=== PATIENT | male | born 1965 | race African-American/Black ===

== ENCOUNTER → 2021-12-11 | Emergency (ER) | payer OTHER ==
[2021-12-11 20:48] LABS: BASO % 0.6 % (0-2.0); EOS % 0.7 % (0-4.5); HEMATOCRIT 26.2 % (35.4-49); HEMOGLOBIN 8.8 GM/dL (11.7-16.9); LYMPH % 8.1 % (8-40); MCH 30.4 pg (25.7-33.7); MCHC 33.6 g/dl (32.0-35.9); MEAN CELL VOLUME 90.4 fl (80-96); MEAN PLT VOLUME 8.3 fl (7.5-11.1); MONO % 5.2 % (3.8-10.2); NEUT % 85.4 % (42.8-82.8); PLATELET COUNT 358 10^3/uL (134-434); RDW 15.3 % (11.9-15.9); WHITE BLOOD COUNT 15.1 K/mm3 (4.0-10.0)
[2021-12-11 21:04] LABS: BLOOD UREA NITROGEN 95.5 mg/dL (7-18); CALCIUM 10.4 mg/dL (8.5-10.1)
[2021-12-11 21:06] LABS: CREATININE 6.3 mg/dL (0.55-1.3)
[2021-12-11 21:17] VITALS: BP 107/62; PULSE 101; BMI 33.9
== END | disposition short-term general hospital (02) ==
LOC: JER 19:16
DX: J95.01 Hemorrhage from tracheostomy stoma (principal)
CPT/HCPCS: 36415; 80048; 85025; 99283-25

== ENCOUNTER 2021-12-21 17:32 | Inpatient (IN) | payer OTHER ==
[2021-12-21] MEDS ORDERED: VANCOMYCIN/WATER 2 GM/400 ML PREMIX BAG IVPB ONE (19:07)
[2021-12-21] MEDS ORDERED: ACETAMINOPHEN 1000 MG/100 ML BAG IVPB ONE (19:07)
[2021-12-21] MEDS ORDERED: PIPERACILLIN/TAZOB 2.25 GM 2.25 GM in DEXTROSE 5%-WATER - 50 ML IVPB ONE (19:08)
[2021-12-21] MEDS ORDERED: SODIUM CHLORIDE 500 ML IV STA ×2 (19:09→21:01)
[2021-12-21] MEDS ORDERED: PIPERACILLIN/TAZOB 2.25 GM 2.25 GM/50 ML BAG IVPB ONE (19:15)
[2021-12-21 20:11] LABS: BASO % 0.3 % (0-2.0); EOS % 0.7 % (0-4.5); HEMATOCRIT 20.6 % (35.4-49); LYMPH % 8.9 % (8-40); MCH 30.7 pg (25.7-33.7); MCHC 32.8 g/dl (32.0-35.9); MEAN CELL VOLUME 93.7 fl (80-96); MEAN PLT VOLUME 8.4 fl (7.5-11.1); MONO % 6.1 % (3.8-10.2); PLATELET COUNT 362 10^3/uL (134-434); RDW 16.6 % (11.9-15.9); WHITE BLOOD COUNT 17.6 K/mm3 (4.0-10.0)
[2021-12-21 20:13] LABS: VENOUS BASE EXCESS 2.4 mmol/L (-2-2); VENOUS O2 SATURATION 59.3 % (70-80); VENOUS PCO2 41.6 mmHg (38-52); VENOUS PH 7.429 (7.310-7.410)
[2021-12-21 20:17] LABS: INR 1.29 (0.83-1.09); PROTHROMBIN TIME (PATIENT) 14.9 SEC (9.7-13.0)
[2021-12-21 20:18] LABS: HEMOGLOBIN 6.7 GM/dL (11.7-16.9)
[2021-12-21 20:19] LABS: ACTIVATED PTT 35.4 SECONDS (25.2-36.5)
[2021-12-21 20:33] LABS: CALCIUM 10.4 mg/dL (8.5-10.1)
[2021-12-21 20:37] LABS: BLOOD UREA NITROGEN 21.8 mg/dL (7-18); CREATININE 3.3 mg/dL (0.55-1.3)
[2021-12-21 20:39] LABS: BILIRUBIN,TOTAL 0.7 mg/dL (0.2-1); TOT PROT 6.2 g/dl (6.4-8.2)
[2021-12-21] MEDS ORDERED: POTASSIUM CHLORIDE TABS 20 MEQ TABLET.ER (FP) PO ONE (21:53)
[2021-12-21] MEDS ORDERED: POTASSIUM CHLORIDE ORAL LIQUID 20 MEQ/15 ML ONE (22:15)
[2021-12-22 00:35] LABS: BASO % 0.4 % (0-2.0); EOS % 0.7 % (0-4.5); HEMATOCRIT 20.7 % (35.4-49); LYMPH % 9.5 % (8-40); MCH 30.6 pg (25.7-33.7); MCHC 32.5 g/dl (32.0-35.9); MEAN CELL VOLUME 94.3 fl (80-96); MEAN PLT VOLUME 7.8 fl (7.5-11.1); MONO % 7.6 % (3.8-10.2); NEUT % 81.8 % (42.8-82.8); PLATELET COUNT 301 10^3/uL (134-434); RDW 16.7 % (11.9-15.9); WHITE BLOOD COUNT 15.4 K/mm3 (4.0-10.0)
[2021-12-22 00:39] LABS: HEMOGLOBIN 6.7 GM/dL (11.7-16.9)
[2021-12-22] MEDS ORDERED: VANCOMYCIN HCL 1,500 MG in DEXTROSE 5%-WATER - 250 ML IVPB SCH (02:45)
[2021-12-22] MEDS ORDERED: HEPARIN NA (PORCINE) 5,000 UNITS/ML 1ML VIAL ONE ×2 (06:46→14:01)
[2021-12-22] MEDS ORDERED: PIPERACILLIN/TAZOB 2.25 GM 2.25 GM/50 ML BAG IVPB ONE ×2 (06:46→08:11)
[2021-12-22] MEDS: PIPERACILLIN/TAZOB 2.25 GM 2.25 GM in DEXTROSE 5%-WATER - 50 ML IVPB SCH ×3 (07:01→17:40)
[2021-12-22] MEDS: HEPARIN NA (PORCINE) 5,000 UNITS/ML 1ML VIAL SQ SCH ×3 (07:01→22:29)
[2021-12-22] MEDS ORDERED: ACETAMINOPHEN 1000 MG/100 ML BAG IVPB ONE (07:39)
[2021-12-22] MEDS ORDERED: ACETAMINOPHEN INJECTION 100 ML IVPB ONE (07:41)
[2021-12-22] MEDS: INSULIN SLIDING SCALE (NOVOLOG) 1 VIAL SQ SCH ×4 (07:44→22:54)
[2021-12-22 07:50] LABS: HEMOGLOBIN 7.5 GM/dL (11.7-16.9); MCH 31.1 pg (25.7-33.7); MCHC 32.7 g/dl (32.0-35.9); MEAN CELL VOLUME 95.2 fl (80-96); MEAN PLT VOLUME 8.1 fl (7.5-11.1); PLATELET COUNT 400 10^3/uL (134-434); RBC 2.42 M/mm3 (4.00-5.60); RDW 16.3 % (11.9-15.9); RETICULOCYTES 3.29 % (0.5-1.5); WHITE BLOOD COUNT 20.3 K/mm3 (4.0-10.0)
[2021-12-22] MEDS ORDERED: ALBUTEROL SO4 0.083% IH SOL 2.5 MG/3 ML VIAL.NEB. NEB SCH (08:00)
[2021-12-22 08:11] LABS: CALCIUM 11.4 mg/dL (8.5-10.1)
[2021-12-22 08:12] LABS: ALBUMIN 2.2 g/dl (3.4-5.0); BLOOD UREA NITROGEN 27.5 mg/dL (7-18); MAGNESIUM 2.7 mg/dL (1.8-2.4)
[2021-12-22 08:14] LABS: PHOSPHOROUS 3.5 mg/dL (2.5-4.9)
[2021-12-22 08:15] LABS: CREATININE 3.9 mg/dL (0.55-1.3)
[2021-12-22 08:16] LABS: BILIRUBIN,TOTAL 0.3 mg/dL (0.2-1); TOT PROT 7.2 g/dl (6.4-8.2)
[2021-12-22] MEDS ORDERED: FAMOTIDINE 20 MG TABLET ONE (08:27)
[2021-12-22] MEDS ORDERED: ASPIRIN 81 MG CHEWABLE TABLETS ONE (08:27)
[2021-12-22] MEDS ORDERED: ALBUTEROL SO4 0.083% IH SOL 2.5 MG/3 ML VIAL.NEB. NEB ONE (08:41)
[2021-12-22] MEDS: CARVEDILOL 12.5 MG TABLET (FP) GT SCH ×2 (09:00→22:47)
[2021-12-22] MEDS: FAMOTIDINE 40 MG/5 ML ORAL SUSPENSION GT SCH ×2 (09:00→22:30)
[2021-12-22 09:18] LABS: ANISOCYTOSIS 1+; MACROCYTOSIS 1+
[2021-12-22] MEDS ORDERED: FINASTERIDE 5 MG TABLET (FP) PO SCH (10:00)
[2021-12-22] MEDS ORDERED: ASPIRIN 81 MG CHEWABLE TABLETS GT SCH (10:00)
[2021-12-22] MEDS ORDERED: VITAMIN B COMP W-C 1 EA TABLET (NEPHRO-VITE) PO SCH (10:00)
[2021-12-22] MEDS ORDERED: PIPERACILLIN/TAZOBACTAM 2.25 GM VIAL IVPB ONE (17:24)
[2021-12-22] MEDS ORDERED: DEXTROSE 5%-WATER - 50 ML IVPB ONE (17:25)
[2021-12-22 19:17] LABS: BASO % 0.4 % (0-2.0); HEMATOCRIT 22.8 % (35.4-49); HEMOGLOBIN 7.6 GM/dL (11.7-16.9); LYMPH % 11.2 % (8-40); MCH 30.9 pg (25.7-33.7); MCHC 33.5 g/dl (32.0-35.9); MEAN CELL VOLUME 92.3 fl (80-96); MEAN PLT VOLUME 7.8 fl (7.5-11.1); MONO % 5.9 % (3.8-10.2); NEUT % 80.5 % (42.8-82.8); PLATELET COUNT 309 10^3/uL (134-434); RBC 2.47 M/mm3 (4.00-5.60); RDW 15.7 % (11.9-15.9); WHITE BLOOD COUNT 15.2 K/mm3 (4.0-10.0)
[2021-12-22] MEDS: ATORVASTATIN CA 40 MG TABLET (FP) GT SCH (22:30)
[2021-12-23] MEDS ORDERED: DEXTROSE 5%-WATER - 50 ML IVPB ONE ×3 (01:10→16:27)
[2021-12-23] MEDS ORDERED: PIPERACILLIN/TAZOBACTAM 2.25 GM VIAL IVPB ONE ×3 (01:10→16:27)
[2021-12-23] MEDS: PIPERACILLIN/TAZOB 2.25 GM 2.25 GM in DEXTROSE 5%-WATER - 50 ML IVPB SCH ×3 (01:20→17:07)
[2021-12-23] MEDS ORDERED: PIPERACILLIN/TAZOB 2.25 GM 2.25 GM in DEXTROSE 5%-WATER - 50 ML IVPB SCH (03:00)
[2021-12-23] MEDS: HEPARIN NA (PORCINE) 5,000 UNITS/ML 1ML VIAL SQ SCH (05:10)
[2021-12-23] MEDS ORDERED: ACETAMINOPHEN 1000 MG/100 ML BAG IVPB ONE (05:41)
[2021-12-23] MEDS: LEVALBUTEROL HCL 0.63 MG/3 ML VIAL.NEB. IH PRN ×4 (06:06→20:39)
[2021-12-23] MEDS: INSULIN SLIDING SCALE (NOVOLOG) 1 VIAL SQ SCH ×4 (06:38→22:01)
[2021-12-23 07:15] LABS: BASO % 0.5 % (0-2.0); EOS % 1.4 % (0-4.5); HEMATOCRIT 25.3 % (35.4-49); HEMOGLOBIN 8.2 GM/dL (11.7-16.9); LYMPH % 6.9 % (8-40); MCH 30.3 pg (25.7-33.7); MCHC 32.6 g/dl (32.0-35.9); MEAN PLT VOLUME 8.3 fl (7.5-11.1); NEUT % 86.2 % (42.8-82.8); PLATELET COUNT 370 10^3/uL (134-434); RBC 2.72 M/mm3 (4.00-5.60); RDW 16.4 % (11.9-15.9)
[2021-12-23 07:37] LABS: ALBUMIN 1.9 g/dl (3.4-5.0); BLOOD UREA NITROGEN 34.3 mg/dL (7-18); CALCIUM 11.1 mg/dL (8.5-10.1); MAGNESIUM 2.5 mg/dL (1.8-2.4)
[2021-12-23] MEDS ORDERED: SODIUM CHLORIDE 250 ML IV PRN (07:39)
[2021-12-23 07:40] LABS: PHOSPHOROUS 4.8 mg/dL (2.5-4.9)
[2021-12-23 07:42] LABS: BILIRUBIN,TOTAL 0.4 mg/dL (0.2-1); TOT PROT 6.3 g/dl (6.4-8.2)
[2021-12-23 08:34] LABS: ANISOCYTOSIS 1+; MACROCYTOSIS 0
[2021-12-23 08:54] LABS: N-TERMINAL BNP 2889.1 pg/ml (5-125)
[2021-12-23] MEDS ORDERED: EPOETIN ALFA-EPBX 10,000 UNIT/ML VIAL SQ ONE (09:00)
[2021-12-23] MEDS ORDERED: FINASTERIDE 5 MG TABLET (FP) NR SCH ×2 (10:00→11:00)
[2021-12-23] MEDS ORDERED: PANTOPRAZOLE SODIUM 40 MG VIAL IVPUSH SCH (10:00)
[2021-12-23] MEDS ORDERED: LEVALBUTEROL HCL 0.63 MG/3 ML VIAL.NEB. IH ONE (10:30)
[2021-12-23] MEDS: VITAMIN B COMP W-C 1 EA TABLET (NEPHRO-VITE) PO SCH (11:11)
[2021-12-23] MEDS: CARVEDILOL 12.5 MG TABLET (FP) GT SCH ×2 (11:11→21:36)
[2021-12-23] MEDS ORDERED: CARVEDILOL 12.5 MG TABLET (FP) PO ONE (12:45)
[2021-12-23] MEDS: FINASTERIDE 5 MG TABLET (FP) NR SCH (12:55)
[2021-12-23] MEDS ORDERED: SODIUM CHLORIDE 500 ML IV STA (13:04)
[2021-12-23] MEDS: FAMOTIDINE 40 MG/5 ML ORAL SUSPENSION GT SCH (13:08)
[2021-12-23] MEDS: AMINO ACIDS/PROTEIN HYDROLYS 30 ML LIQUID.PKT GT SCH (17:07)
[2021-12-23] MEDS: ATORVASTATIN CA 40 MG TABLET (FP) GT SCH (21:36)
[2021-12-23] MEDS ORDERED: CARVEDILOL 25 MG TABLET (FP) GT SCH (22:00)
[2021-12-23] MEDS ORDERED: SODIUM CHLORIDE 0.9% 500 ML INFUS.BAG IV ONE (22:11)
[2021-12-24] MEDS ORDERED: DEXTROSE 5%-WATER - 50 ML IVPB ONE ×3 (02:23→17:23)
[2021-12-24] MEDS ORDERED: PIPERACILLIN/TAZOBACTAM 2.25 GM VIAL IVPB ONE ×3 (02:23→17:22)
[2021-12-24] MEDS: PIPERACILLIN/TAZOB 2.25 GM 2.25 GM in DEXTROSE 5%-WATER - 50 ML IVPB SCH ×3 (02:26→17:26)
[2021-12-24] MEDS: INSULIN SLIDING SCALE (NOVOLOG) 1 VIAL SQ SCH ×4 (06:44→22:14)
[2021-12-24 06:48] LABS: BASO % 0.3 % (0-2.0); EOS % 1.2 % (0-4.5); HEMATOCRIT 22.7 % (35.4-49); HEMOGLOBIN 7.6 GM/dL (11.7-16.9); LYMPH % 6.8 % (8-40); MCH 31.1 pg (25.7-33.7); MCHC 33.4 g/dl (32.0-35.9); MEAN CELL VOLUME 93.2 fl (80-96); MEAN PLT VOLUME 8.3 fl (7.5-11.1); MONO % 4.2 % (3.8-10.2); NEUT % 87.5 % (42.8-82.8); PLATELET COUNT 308 10^3/uL (134-434); RBC 2.43 M/mm3 (4.00-5.60); RDW 16.2 % (11.9-15.9); WHITE BLOOD COUNT 16.9 K/mm3 (4.0-10.0)
[2021-12-24 07:23] LABS: ALBUMIN 1.8 g/dl (3.4-5.0); BLOOD UREA NITROGEN 19.1 mg/dL (7-18); CALCIUM 10.5 mg/dL (8.5-10.1); MAGNESIUM 2.2 mg/dL (1.8-2.4)
[2021-12-24 07:26] LABS: CREATININE 3.6 mg/dL (0.55-1.3); PHOSPHOROUS 3.8 mg/dL (2.5-4.9)
[2021-12-24 07:28] LABS: BILIRUBIN,TOTAL 0.3 mg/dL (0.2-1); TOT PROT 6.1 g/dl (6.4-8.2)
[2021-12-24] MEDS: AMINO ACIDS/PROTEIN HYDROLYS 30 ML LIQUID.PKT GT SCH ×2 (08:55→17:26)
[2021-12-24] MEDS: ASCORBIC ACID 500 MG TABLET (FP) GT SCH (09:45)
[2021-12-24] MEDS: LACTOBACILLUS ACIDOPHILUS 1 TABLET GT SCH (09:45)
[2021-12-24] MEDS: VITAMIN B COMP W-C 1 EA TABLET (NEPHRO-VITE) PO SCH (09:45)
[2021-12-24] MEDS: CARVEDILOL 12.5 MG TABLET (FP) GT SCH ×2 (09:47→21:37)
[2021-12-24] MEDS: PANTOPRAZOLE SODIUM 40 MG VIAL IVPUSH SCH (09:48)
[2021-12-24] MEDS ORDERED: POTASSIUM CHLORIDE ORAL LIQUID 20 MEQ/15 ML PEG ONE (11:43)
[2021-12-24] MEDS: FINASTERIDE 5 MG TABLET (FP) NR SCH (12:44)
[2021-12-24] MEDS: ATORVASTATIN CA 40 MG TABLET (FP) GT SCH (21:36)
[2021-12-25] MEDS ORDERED: DEXTROSE 5%-WATER - 50 ML IVPB ONE (00:26)
[2021-12-25] MEDS ORDERED: PIPERACILLIN/TAZOBACTAM 2.25 GM VIAL IVPB ONE (00:26)
[2021-12-25] MEDS: PIPERACILLIN/TAZOB 2.25 GM 2.25 GM in DEXTROSE 5%-WATER - 50 ML IVPB SCH (01:11)
[2021-12-25] MEDS: LEVALBUTEROL HCL 0.63 MG/3 ML VIAL.NEB. IH PRN ×2 (02:15→08:44)
[2021-12-25] MEDS: INSULIN SLIDING SCALE (NOVOLOG) 1 VIAL SQ SCH ×4 (06:25→21:44)
[2021-12-25 07:16] LABS: BASO % 0.3 % (0-2.0); HEMATOCRIT 24.7 % (35.4-49); HEMOGLOBIN 8.3 GM/dL (11.7-16.9); LYMPH % 9.6 % (8-40); MCH 31.5 pg (25.7-33.7); MCHC 33.5 g/dl (32.0-35.9); MEAN CELL VOLUME 94.1 fl (80-96); MEAN PLT VOLUME 8.2 fl (7.5-11.1); NEUT % 84.1 % (42.8-82.8); PLATELET COUNT 323 10^3/uL (134-434); RBC 2.63 M/mm3 (4.00-5.60); RDW 16.1 % (11.9-15.9); WHITE BLOOD COUNT 16.4 K/mm3 (4.0-10.0)
[2021-12-25 07:30] LABS: ALBUMIN 1.9 g/dl (3.4-5.0); BLOOD UREA NITROGEN 32.2 mg/dL (7-18)
[2021-12-25 07:33] LABS: CREATININE 4.7 mg/dL (0.55-1.3)
[2021-12-25 07:35] LABS: BILIRUBIN,TOTAL 0.3 mg/dL (0.2-1); TOT PROT 6.3 g/dl (6.4-8.2)
[2021-12-25] MEDS: VITAMIN B COMP W-C 1 EA TABLET (NEPHRO-VITE) PO SCH (09:47)
[2021-12-25] MEDS: CARVEDILOL 12.5 MG TABLET (FP) GT SCH ×2 (09:47→21:40)
[2021-12-25] MEDS: AMINO ACIDS/PROTEIN HYDROLYS 30 ML LIQUID.PKT GT SCH ×2 (09:47→18:12)
[2021-12-25] MEDS: ASCORBIC ACID 500 MG TABLET (FP) GT SCH (09:47)
[2021-12-25] MEDS: LACTOBACILLUS ACIDOPHILUS 1 TABLET GT SCH (09:47)
[2021-12-25] MEDS: PANTOPRAZOLE SODIUM 40 MG VIAL IVPUSH SCH (09:48)
[2021-12-25] MEDS: FINASTERIDE 5 MG TABLET (FP) NR SCH (13:11)
[2021-12-25] MEDS: ATORVASTATIN CA 40 MG TABLET (FP) GT SCH (21:40)
[2021-12-26] MEDS: INSULIN SLIDING SCALE (NOVOLOG) 1 VIAL SQ SCH ×4 (06:26→23:02)
[2021-12-26 07:06] LABS: HEMATOCRIT 23.8 % (35.4-49); HEMOGLOBIN 7.9 GM/dL (11.7-16.9); MCH 31.4 pg (25.7-33.7); MCHC 33.2 g/dl (32.0-35.9); MEAN CELL VOLUME 94.5 fl (80-96); MEAN PLT VOLUME 8.4 fl (7.5-11.1); PLATELET COUNT 312 10^3/uL (134-434); RBC 2.52 M/mm3 (4.00-5.60); RDW 16.2 % (11.9-15.9); WHITE BLOOD COUNT 13.2 K/mm3 (4.0-10.0)
[2021-12-26 07:25] LABS: CALCIUM 10.4 mg/dL (8.5-10.1)
[2021-12-26 07:26] LABS: ALBUMIN 1.9 g/dl (3.4-5.0); BLOOD UREA NITROGEN 40.8 mg/dL (7-18)
[2021-12-26 07:29] LABS: CREATININE 5.8 mg/dL (0.55-1.3)
[2021-12-26 07:30] LABS: BILIRUBIN,TOTAL 0.8 mg/dL (0.2-1)
[2021-12-26] MEDS ORDERED: SODIUM CHLORIDE 250 ML IV PRN (07:45)
[2021-12-26] MEDS: AMINO ACIDS/PROTEIN HYDROLYS 30 ML LIQUID.PKT GT SCH ×2 (08:36→18:23)
[2021-12-26] MEDS ORDERED: EPOETIN ALFA-EPBX 10,000 UNIT/ML VIAL SQ ONE (09:00)
[2021-12-26] MEDS: PANTOPRAZOLE SODIUM 40 MG VIAL IVPUSH SCH (09:36)
[2021-12-26] MEDS: VITAMIN B COMP W-C 1 EA TABLET (NEPHRO-VITE) PO SCH (09:38)
[2021-12-26] MEDS: ASCORBIC ACID 500 MG TABLET (FP) GT SCH (09:39)
[2021-12-26] MEDS: LACTOBACILLUS ACIDOPHILUS 1 TABLET GT SCH (09:40)
[2021-12-26] MEDS: KCL 10 MEQ IVPB 10 MEQ/100 ML INFUS.BAG IVPB SCH ×3 (09:47→11:21)
[2021-12-26] MEDS: CARVEDILOL 12.5 MG TABLET (FP) GT SCH ×3 (10:02→22:56)
[2021-12-26] MEDS: FINASTERIDE 5 MG TABLET (FP) NR SCH (11:48)
[2021-12-26] MEDS: ATORVASTATIN CA 40 MG TABLET (FP) GT SCH (22:56)
[2021-12-27] MEDS: ACETAMINOPHEN 1000 MG/100 ML BAG IVPB PRN ×2 (00:41→15:10)
[2021-12-27] MEDS: INSULIN SLIDING SCALE (NOVOLOG) 1 VIAL SQ SCH ×4 (06:15→22:16)
[2021-12-27] MEDS: AMINO ACIDS/PROTEIN HYDROLYS 30 ML LIQUID.PKT GT SCH ×2 (09:38→16:46)
[2021-12-27] MEDS: ASCORBIC ACID 500 MG TABLET (FP) GT SCH (09:39)
[2021-12-27] MEDS: LACTOBACILLUS ACIDOPHILUS 1 TABLET GT SCH (09:39)
[2021-12-27] MEDS: CARVEDILOL 12.5 MG TABLET (FP) GT SCH ×2 (09:39→22:14)
[2021-12-27] MEDS: VITAMIN B COMP W-C 1 EA TABLET (NEPHRO-VITE) PO SCH (09:39)
[2021-12-27] MEDS: PANTOPRAZOLE SODIUM 40 MG VIAL IVPUSH SCH (09:40)
[2021-12-27] MEDS: FINASTERIDE 5 MG TABLET (FP) NR SCH (11:24)
[2021-12-27] MEDS: COLLAGENASE CLOSTRIDIUM HIST. 30 GRAMS TUBE TP SCH (15:21)
[2021-12-27 20:12] LABS: CALCIUM 10.8 mg/dL (8.5-10.1)
[2021-12-27 20:13] LABS: BLOOD UREA NITROGEN 39.6 mg/dL (7-18)
[2021-12-27 20:16] LABS: CREATININE 4.6 mg/dL (0.55-1.3)
[2021-12-27] MEDS ORDERED: POTASSIUM CHLORIDE 20 MEQ PREMIX IVPB 100 ML IVPB ONE (20:58)
[2021-12-27] MEDS: ATORVASTATIN CA 40 MG TABLET (FP) GT SCH (22:14)
[2021-12-28] MEDS: KCL 10 MEQ IVPB 10 MEQ/100 ML INFUS.BAG IVPB SCH ×3 (00:17→02:13)
[2021-12-28 00:33] LABS: MAGNESIUM 2.2 mg/dL (1.8-2.4)
[2021-12-28] MEDS: INSULIN SLIDING SCALE (NOVOLOG) 1 VIAL SQ SCH ×4 (06:03→22:44)
[2021-12-28] MEDS ORDERED: EPOETIN ALFA-EPBX 10,000 UNIT/ML VIAL SQ ONE (08:00)
[2021-12-28] MEDS ORDERED: SODIUM CHLORIDE 250 ML IV PRN (08:00)
[2021-12-28 08:57] LABS: HEMATOCRIT 22.6 % (35.4-49); HEMOGLOBIN 7.5 GM/dL (11.7-16.9); MCH 31.4 pg (25.7-33.7); MCHC 33.1 g/dl (32.0-35.9); MEAN CELL VOLUME 94.9 fl (80-96); MEAN PLT VOLUME 8.6 fl (7.5-11.1); PLATELET COUNT 286 10^3/uL (134-434); RBC 2.38 M/mm3 (4.00-5.60); RDW 16.9 % (11.9-15.9)
[2021-12-28 09:24] LABS: CALCIUM 10.8 mg/dL (8.5-10.1)
[2021-12-28 09:25] LABS: BLOOD UREA NITROGEN 44.7 mg/dL (7-18); MAGNESIUM 2.3 mg/dL (1.8-2.4)
[2021-12-28 09:28] LABS: CREATININE 5.1 mg/dL (0.55-1.3)
[2021-12-28 09:29] LABS: BILIRUBIN,TOTAL 0.2 mg/dL (0.2-1)
[2021-12-28 09:36] LABS: ANISOCYTOSIS 0; HELMET CELLS 0; HOWELL-JOLLY BODIES 0; MACROCYTOSIS 0; OVALOCYTE 0; ROULEAU 0; SICKELED CELLS 0; TARGET CELLS 0; TEAR DROP CELLS 0; TOXIC GRANULATION 0
[2021-12-28] MEDS: AMINO ACIDS/PROTEIN HYDROLYS 30 ML LIQUID.PKT GT SCH ×2 (10:45→16:54)
[2021-12-28] MEDS: LACTOBACILLUS ACIDOPHILUS 1 TABLET GT SCH (10:46)
[2021-12-28] MEDS: PANTOPRAZOLE SODIUM 40 MG VIAL IVPUSH SCH (10:46)
[2021-12-28] MEDS: VITAMIN B COMP W-C 1 EA TABLET (NEPHRO-VITE) PO SCH (10:47)
[2021-12-28] MEDS: CARVEDILOL 12.5 MG TABLET (FP) GT SCH ×2 (10:47→21:26)
[2021-12-28] MEDS: ASCORBIC ACID 500 MG TABLET (FP) GT SCH (10:48)
[2021-12-28] MEDS: FINASTERIDE 5 MG TABLET (FP) NR SCH (13:00)
[2021-12-28] MEDS: COLLAGENASE CLOSTRIDIUM HIST. 30 GRAMS TUBE TP SCH (14:36)
[2021-12-28 17:00] VITALS: BMI 28.0
[2021-12-28] MEDS: ATORVASTATIN CA 40 MG TABLET (FP) GT SCH (21:26)
[2021-12-28] MEDS: BANATROL PLUS POWDER PACKET PO SCH (21:26)
[2021-12-29] MEDS: BANATROL PLUS POWDER PACKET PO SCH ×3 (05:31→21:10)
[2021-12-29] MEDS: INSULIN SLIDING SCALE (NOVOLOG) 1 VIAL SQ SCH ×4 (06:40→22:09)
[2021-12-29] MEDS: AMINO ACIDS/PROTEIN HYDROLYS 30 ML LIQUID.PKT GT SCH ×2 (09:36→17:43)
[2021-12-29] MEDS: LACTOBACILLUS ACIDOPHILUS 1 TABLET GT SCH (09:36)
[2021-12-29] MEDS: PANTOPRAZOLE SODIUM 40 MG VIAL IVPUSH SCH (09:36)
[2021-12-29] MEDS: VITAMIN B COMP W-C 1 EA TABLET (NEPHRO-VITE) PO SCH (09:36)
[2021-12-29] MEDS: CARVEDILOL 12.5 MG TABLET (FP) GT SCH ×2 (09:37→21:10)
[2021-12-29] MEDS: COLLAGENASE CLOSTRIDIUM HIST. 30 GRAMS TUBE TP SCH (09:37)
[2021-12-29] MEDS: FINASTERIDE 5 MG TABLET (FP) NR SCH (12:47)
[2021-12-29] MEDS: ATORVASTATIN CA 40 MG TABLET (FP) GT SCH (21:10)
[2021-12-30] MEDS: BANATROL PLUS POWDER PACKET PO SCH ×3 (05:15→21:11)
[2021-12-30] MEDS: INSULIN SLIDING SCALE (NOVOLOG) 1 VIAL SQ SCH ×4 (06:21→21:21)
[2021-12-30] MEDS ORDERED: SODIUM CHLORIDE 250 ML IV PRN (07:00)
[2021-12-30] MEDS ORDERED: EPOETIN ALFA-EPBX 10,000 UNIT/ML VIAL SQ ONE (07:00)
[2021-12-30 07:33] LABS: BASO % 0.6 % (0-2.0); EOS % 1.3 % (0-4.5); HEMATOCRIT 23.7 % (35.4-49); HEMOGLOBIN 7.9 GM/dL (11.7-16.9); LYMPH % 11.1 % (8-40); MCH 31.7 pg (25.7-33.7); MCHC 33.4 g/dl (32.0-35.9); MEAN PLT VOLUME 8.2 fl (7.5-11.1); MONO % 6.8 % (3.8-10.2); NEUT % 80.2 % (42.8-82.8); PLATELET COUNT 293 10^3/uL (134-434); RBC 2.49 M/mm3 (4.00-5.60); RDW 17.7 % (11.9-15.9); WHITE BLOOD COUNT 11.2 K/mm3 (4.0-10.0)
[2021-12-30] MEDS: AMINO ACIDS/PROTEIN HYDROLYS 30 ML LIQUID.PKT GT SCH ×2 (07:54→17:43)
[2021-12-30 07:57] LABS: ALBUMIN 2.1 g/dl (3.4-5.0); BLOOD UREA NITROGEN 48.2 mg/dL (7-18)
[2021-12-30 07:59] LABS: CREATININE 4.9 mg/dL (0.55-1.3)
[2021-12-30 08:01] LABS: BILIRUBIN,TOTAL 0.3 mg/dL (0.2-1); TOT PROT 6.1 g/dl (6.4-8.2)
[2021-12-30] MEDS: LACTOBACILLUS ACIDOPHILUS 1 TABLET GT SCH (09:44)
[2021-12-30] MEDS: VITAMIN B COMP W-C 1 EA TABLET (NEPHRO-VITE) PO SCH (09:44)
[2021-12-30] MEDS: CARVEDILOL 12.5 MG TABLET (FP) GT SCH ×2 (09:44→21:11)
[2021-12-30] MEDS: COLLAGENASE CLOSTRIDIUM HIST. 30 GRAMS TUBE TP SCH (09:49)
[2021-12-30] MEDS: PANTOPRAZOLE SODIUM 40 MG VIAL IVPUSH SCH (09:49)
[2021-12-30] MEDS: FINASTERIDE 5 MG TABLET (FP) NR SCH (12:12)
[2021-12-30] MEDS: ATORVASTATIN CA 40 MG TABLET (FP) GT SCH (21:11)
[2021-12-31] MEDS: BANATROL PLUS POWDER PACKET PO SCH ×3 (05:48→21:01)
[2021-12-31] MEDS: INSULIN SLIDING SCALE (NOVOLOG) 1 VIAL SQ SCH ×4 (06:30→21:00)
[2021-12-31] MEDS: AMINO ACIDS/PROTEIN HYDROLYS 30 ML LIQUID.PKT GT SCH ×2 (09:00→16:36)
[2021-12-31] MEDS: COLLAGENASE CLOSTRIDIUM HIST. 30 GRAMS TUBE TP SCH (09:12)
[2021-12-31] MEDS: CARVEDILOL 12.5 MG TABLET (FP) GT SCH ×2 (09:12→21:00)
[2021-12-31] MEDS: VITAMIN B COMP W-C 1 EA TABLET (NEPHRO-VITE) PO SCH (09:12)
[2021-12-31] MEDS: PANTOPRAZOLE SODIUM 40 MG VIAL IVPUSH SCH (09:12)
[2021-12-31] MEDS: LACTOBACILLUS ACIDOPHILUS 1 TABLET GT SCH (09:12)
[2021-12-31] MEDS: FINASTERIDE 5 MG TABLET (FP) NR SCH (12:00)
[2021-12-31] MEDS: ATORVASTATIN CA 40 MG TABLET (FP) GT SCH (21:01)
[2022-01-01] MEDS: BANATROL PLUS POWDER PACKET PO SCH ×3 (06:31→21:19)
[2022-01-01] MEDS: INSULIN SLIDING SCALE (NOVOLOG) 1 VIAL SQ SCH ×4 (06:31→21:53)
[2022-01-01] MEDS: PANTOPRAZOLE SODIUM 40 MG VIAL IVPUSH SCH (09:34)
[2022-01-01] MEDS: AMINO ACIDS/PROTEIN HYDROLYS 30 ML LIQUID.PKT GT SCH ×2 (09:34→16:43)
[2022-01-01] MEDS: VITAMIN B COMP W-C 1 EA TABLET (NEPHRO-VITE) PO SCH (09:34)
[2022-01-01] MEDS: CARVEDILOL 12.5 MG TABLET (FP) GT SCH ×2 (09:34→21:19)
[2022-01-01] MEDS: LACTOBACILLUS ACIDOPHILUS 1 TABLET GT SCH (09:34)
[2022-01-01] MEDS: COLLAGENASE CLOSTRIDIUM HIST. 30 GRAMS TUBE TP SCH (09:34)
[2022-01-01] MEDS: FINASTERIDE 5 MG TABLET (FP) NR SCH (12:51)
[2022-01-01] MEDS: ATORVASTATIN CA 40 MG TABLET (FP) GT SCH (21:19)
[2022-01-02] MEDS: BANATROL PLUS POWDER PACKET PO SCH ×3 (06:14→21:06)
[2022-01-02] MEDS: INSULIN SLIDING SCALE (NOVOLOG) 1 VIAL SQ SCH ×5 (07:00→21:40)
[2022-01-02 07:23] LABS: BASO % 0.5 % (0-2.0); EOS % 1.2 % (0-4.5); HEMATOCRIT 23.5 % (35.4-49); HEMOGLOBIN 7.7 GM/dL (11.7-16.9); LYMPH % 11.3 % (8-40); MCH 31.1 pg (25.7-33.7); MCHC 32.9 g/dl (32.0-35.9); MEAN CELL VOLUME 94.5 fl (80-96); MEAN PLT VOLUME 8.7 fl (7.5-11.1); MONO % 6.9 % (3.8-10.2); NEUT % 80.1 % (42.8-82.8); PLATELET COUNT 319 10^3/uL (134-434); RBC 2.48 M/mm3 (4.00-5.60); RDW 17.7 % (11.9-15.9); WHITE BLOOD COUNT 11.9 K/mm3 (4.0-10.0)
[2022-01-02 07:44] LABS: BLOOD UREA NITROGEN 64.6 mg/dL (7-18); CALCIUM 10.4 mg/dL (8.5-10.1)
[2022-01-02 07:48] LABS: CREATININE 5.9 mg/dL (0.55-1.3)
[2022-01-02] MEDS: AMINO ACIDS/PROTEIN HYDROLYS 30 ML LIQUID.PKT GT SCH ×2 (08:00→17:23)
[2022-01-02] MEDS ORDERED: SODIUM CHLORIDE 250 ML IV PRN (08:30)
[2022-01-02] MEDS ORDERED: EPOETIN ALFA-EPBX 10,000 UNIT/ML VIAL SQ ONE (08:30)
[2022-01-02] MEDS: CARVEDILOL 12.5 MG TABLET (FP) GT SCH ×2 (10:00→21:06)
[2022-01-02] MEDS: PANTOPRAZOLE SODIUM 40 MG VIAL IVPUSH SCH (12:07)
[2022-01-02] MEDS: LACTOBACILLUS ACIDOPHILUS 1 TABLET GT SCH (12:07)
[2022-01-02] MEDS: VITAMIN B COMP W-C 1 EA TABLET (NEPHRO-VITE) PO SCH (12:09)
[2022-01-02] MEDS: COLLAGENASE CLOSTRIDIUM HIST. 30 GRAMS TUBE TP SCH (12:09)
[2022-01-02] MEDS: FINASTERIDE 5 MG TABLET (FP) NR SCH (12:10)
[2022-01-02] MEDS: ATORVASTATIN CA 40 MG TABLET (FP) GT SCH (21:06)
[2022-01-02] MEDS ORDERED: SODIUM CHLORIDE 0.9% 500 ML INFUS.BAG IV ONE (22:15)
[2022-01-03] MEDS: BANATROL PLUS POWDER PACKET PO SCH ×3 (05:28→21:16)
[2022-01-03] MEDS: INSULIN SLIDING SCALE (NOVOLOG) 1 VIAL SQ SCH ×4 (06:23→22:25)
[2022-01-03] MEDS: AMINO ACIDS/PROTEIN HYDROLYS 30 ML LIQUID.PKT GT SCH ×2 (09:33→17:55)
[2022-01-03] MEDS: PANTOPRAZOLE SODIUM 40 MG VIAL IVPUSH SCH (09:33)
[2022-01-03] MEDS: LACTOBACILLUS ACIDOPHILUS 1 TABLET GT SCH (09:34)
[2022-01-03] MEDS: CARVEDILOL 12.5 MG TABLET (FP) GT SCH ×2 (09:34→21:16)
[2022-01-03] MEDS: VITAMIN B COMP W-C 1 EA TABLET (NEPHRO-VITE) PO SCH (09:34)
[2022-01-03] MEDS: COLLAGENASE CLOSTRIDIUM HIST. 30 GRAMS TUBE TP SCH (09:34)
[2022-01-03] MEDS: FINASTERIDE 5 MG TABLET (FP) NR SCH (15:36)
[2022-01-03] MEDS: ATORVASTATIN CA 40 MG TABLET (FP) GT SCH (21:16)
[2022-01-04] MEDS: BANATROL PLUS POWDER PACKET PO SCH ×3 (05:12→21:00)
[2022-01-04] MEDS: INSULIN SLIDING SCALE (NOVOLOG) 1 VIAL SQ SCH ×4 (06:14→21:07)
[2022-01-04] MEDS ORDERED: EPOETIN ALFA-EPBX 10,000 UNIT/ML VIAL IVPUSH ONE (10:00)
[2022-01-04] MEDS: AMINO ACIDS/PROTEIN HYDROLYS 30 ML LIQUID.PKT GT SCH ×2 (10:51→18:04)
[2022-01-04] MEDS: VITAMIN B COMP W-C 1 EA TABLET (NEPHRO-VITE) PO SCH (10:52)
[2022-01-04] MEDS: PANTOPRAZOLE SODIUM 40 MG VIAL IVPUSH SCH (10:52)
[2022-01-04] MEDS: CARVEDILOL 12.5 MG TABLET (FP) GT SCH ×2 (10:53→21:00)
[2022-01-04] MEDS: LACTOBACILLUS ACIDOPHILUS 1 TABLET GT SCH (10:53)
[2022-01-04] MEDS: FINASTERIDE 5 MG TABLET (FP) NR SCH (13:08)
[2022-01-04] MEDS: COLLAGENASE CLOSTRIDIUM HIST. 30 GRAMS TUBE TP SCH (13:26)
[2022-01-04] MEDS: ATORVASTATIN CA 40 MG TABLET (FP) GT SCH (21:00)
[2022-01-05] MEDS: BANATROL PLUS POWDER PACKET PO SCH ×4 (05:26→21:21)
[2022-01-05] MEDS: INSULIN SLIDING SCALE (NOVOLOG) 1 VIAL SQ SCH ×4 (06:09→21:21)
[2022-01-05] MEDS: AMINO ACIDS/PROTEIN HYDROLYS 30 ML LIQUID.PKT GT SCH ×2 (08:03→16:50)
[2022-01-05] MEDS: LACTOBACILLUS ACIDOPHILUS 1 TABLET GT SCH (09:31)
[2022-01-05] MEDS: CARVEDILOL 12.5 MG TABLET (FP) GT SCH ×2 (09:31→21:22)
[2022-01-05] MEDS: VITAMIN B COMP W-C 1 EA TABLET (NEPHRO-VITE) PO SCH (09:31)
[2022-01-05] MEDS: COLLAGENASE CLOSTRIDIUM HIST. 30 GRAMS TUBE TP SCH (09:32)
[2022-01-05] MEDS: PANTOPRAZOLE SODIUM 40 MG VIAL IVPUSH SCH (09:38)
[2022-01-05] MEDS: FINASTERIDE 5 MG TABLET (FP) NR SCH (12:56)
[2022-01-05] MEDS: ATORVASTATIN CA 40 MG TABLET (FP) GT SCH (21:22)
[2022-01-06] MEDS: BANATROL PLUS POWDER PACKET PO SCH ×3 (06:32→22:10)
[2022-01-06] MEDS: INSULIN SLIDING SCALE (NOVOLOG) 1 VIAL SQ SCH ×4 (06:34→22:10)
[2022-01-06] MEDS ORDERED: SODIUM CHLORIDE 250 ML IV PRN (07:00)
[2022-01-06] MEDS ORDERED: EPOETIN ALFA-EPBX 10,000 UNIT/ML VIAL SQ ONE (07:00)
[2022-01-06] MEDS: AMINO ACIDS/PROTEIN HYDROLYS 30 ML LIQUID.PKT GT SCH ×2 (08:17→18:42)
[2022-01-06 09:00] LABS: HEMATOCRIT 24.2 % (35.4-49); MCH 30.9 pg (25.7-33.7); MCHC 32.9 g/dl (32.0-35.9); MEAN CELL VOLUME 93.9 fl (80-96); MEAN PLT VOLUME 8.7 fl (7.5-11.1); PLATELET COUNT 342 10^3/uL (134-434); RBC 2.58 M/mm3 (4.00-5.60); RDW 17.7 % (11.9-15.9); WHITE BLOOD COUNT 12.1 K/mm3 (4.0-10.0)
[2022-01-06 09:23] LABS: ALBUMIN 2.3 g/dl (3.4-5.0); BLOOD UREA NITROGEN 53.7 mg/dL (7-18); CALCIUM 10.7 mg/dL (8.5-10.1)
[2022-01-06 09:26] LABS: CREATININE 4.8 mg/dL (0.55-1.3)
[2022-01-06 09:28] LABS: BILIRUBIN,TOTAL 0.3 mg/dL (0.2-1); TOT PROT 6.2 g/dl (6.4-8.2)
[2022-01-06] MEDS: CARVEDILOL 12.5 MG TABLET (FP) GT SCH ×2 (09:48→22:11)
[2022-01-06] MEDS: VITAMIN B COMP W-C 1 EA TABLET (NEPHRO-VITE) PO SCH (09:48)
[2022-01-06] MEDS: LACTOBACILLUS ACIDOPHILUS 1 TABLET GT SCH (09:48)
[2022-01-06] MEDS: PANTOPRAZOLE SODIUM 40 MG VIAL IVPUSH SCH (09:49)
[2022-01-06] MEDS: COLLAGENASE CLOSTRIDIUM HIST. 30 GRAMS TUBE TP SCH (09:50)
[2022-01-06] MEDS: FINASTERIDE 5 MG TABLET (FP) NR SCH (11:34)
[2022-01-06] MEDS ORDERED: ACETAMINOPHEN 650 MG/20.3 ML ORAL SOLUTION (CUPS) GT PRN (20:20)
[2022-01-06] MEDS: ATORVASTATIN CA 40 MG TABLET (FP) GT SCH (22:11)
[2022-01-07] MEDS: INSULIN SLIDING SCALE (NOVOLOG) 1 VIAL SQ SCH ×4 (06:15→22:12)
[2022-01-07] MEDS: BANATROL PLUS POWDER PACKET PO SCH ×3 (06:15→22:11)
[2022-01-07] MEDS: LACTOBACILLUS ACIDOPHILUS 1 TABLET GT SCH (09:06)
[2022-01-07] MEDS: AMINO ACIDS/PROTEIN HYDROLYS 30 ML LIQUID.PKT GT SCH ×2 (09:06→17:35)
[2022-01-07] MEDS: VITAMIN B COMP W-C 1 EA TABLET (NEPHRO-VITE) PO SCH (09:06)
[2022-01-07] MEDS: PANTOPRAZOLE SODIUM 40 MG VIAL IVPUSH SCH (09:06)
[2022-01-07] MEDS: CARVEDILOL 12.5 MG TABLET (FP) GT SCH ×2 (09:08→22:12)
[2022-01-07] MEDS: COLLAGENASE CLOSTRIDIUM HIST. 30 GRAMS TUBE TP SCH (09:19)
[2022-01-07] MEDS: FINASTERIDE 5 MG TABLET (FP) NR SCH (12:12)
[2022-01-07] MEDS: ATORVASTATIN CA 40 MG TABLET (FP) GT SCH (22:12)
[2022-01-08] MEDS: INSULIN SLIDING SCALE (NOVOLOG) 1 VIAL SQ SCH ×4 (06:00→22:44)
[2022-01-08] MEDS: BANATROL PLUS POWDER PACKET PO SCH ×3 (06:00→22:02)
[2022-01-08 06:24] LABS: BASO % 0.6 % (0-2.0); EOS % 1.1 % (0-4.5); HEMATOCRIT 26.3 % (35.4-49); HEMOGLOBIN 8.8 GM/dL (11.7-16.9); LYMPH % 9.9 % (8-40); MCH 31.4 pg (25.7-33.7); MCHC 33.5 g/dl (32.0-35.9); MEAN CELL VOLUME 93.8 fl (80-96); MEAN PLT VOLUME 8.9 fl (7.5-11.1); MONO % 6.6 % (3.8-10.2); NEUT % 81.8 % (42.8-82.8); PLATELET COUNT 334 10^3/uL (134-434); RBC 2.81 M/mm3 (4.00-5.60); RDW 17.8 % (11.9-15.9); WHITE BLOOD COUNT 13.2 K/mm3 (4.0-10.0)
[2022-01-08 06:40] LABS: ALBUMIN 2.4 g/dl (3.4-5.0)
[2022-01-08 06:43] LABS: CREATININE 4.9 mg/dL (0.55-1.3); PHOSPHOROUS 4.6 mg/dL (2.5-4.9)
[2022-01-08 06:44] LABS: BILIRUBIN,TOTAL 0.4 mg/dL (0.2-1)
[2022-01-08 06:45] LABS: TOT PROT 6.4 g/dl (6.4-8.2)
[2022-01-08] MEDS: AMINO ACIDS/PROTEIN HYDROLYS 30 ML LIQUID.PKT GT SCH ×2 (09:33→16:50)
[2022-01-08] MEDS: LACTOBACILLUS ACIDOPHILUS 1 TABLET GT SCH (09:34)
[2022-01-08] MEDS: COLLAGENASE CLOSTRIDIUM HIST. 30 GRAMS TUBE TP SCH (09:34)
[2022-01-08] MEDS: VITAMIN B COMP W-C 1 EA TABLET (NEPHRO-VITE) PO SCH (09:34)
[2022-01-08] MEDS: PANTOPRAZOLE SODIUM 40 MG VIAL IVPUSH SCH (09:34)
[2022-01-08] MEDS: CARVEDILOL 12.5 MG TABLET (FP) GT SCH ×2 (09:34→22:02)
[2022-01-08] MEDS: FINASTERIDE 5 MG TABLET (FP) NR SCH (13:05)
[2022-01-08] MEDS: ATORVASTATIN CA 40 MG TABLET (FP) GT SCH (22:02)
[2022-01-09] MEDS: BANATROL PLUS POWDER PACKET PO SCH ×3 (05:34→21:59)
[2022-01-09] MEDS: INSULIN SLIDING SCALE (NOVOLOG) 1 VIAL SQ SCH ×4 (06:40→22:00)
[2022-01-09] MEDS: AMINO ACIDS/PROTEIN HYDROLYS 30 ML LIQUID.PKT GT SCH ×2 (08:19→17:53)
[2022-01-09] MEDS ORDERED: EPOETIN ALFA-EPBX 10,000 UNIT/ML VIAL IVPUSH ONE (09:15)
[2022-01-09 09:16] LABS: HEMATOCRIT 23.3 % (35.4-49); HEMOGLOBIN 7.7 GM/dL (11.7-16.9); MCH 31.1 pg (25.7-33.7); MCHC 33.2 g/dl (32.0-35.9); MEAN CELL VOLUME 93.8 fl (80-96); MEAN PLT VOLUME 8.8 fl (7.5-11.1); PLATELET COUNT 300 10^3/uL (134-434); RBC 2.48 M/mm3 (4.00-5.60); RDW 18.3 % (11.9-15.9)
[2022-01-09 09:46] LABS: CALCIUM 10.7 mg/dL (8.5-10.1)
[2022-01-09 09:47] LABS: BLOOD UREA NITROGEN 82.9 mg/dL (7-18)
[2022-01-09 09:50] LABS: CREATININE 5.8 mg/dL (0.55-1.3)
[2022-01-09] MEDS: COLLAGENASE CLOSTRIDIUM HIST. 30 GRAMS TUBE TP SCH (12:00)
[2022-01-09] MEDS: FINASTERIDE 5 MG TABLET (FP) NR SCH (12:00)
[2022-01-09] MEDS: PANTOPRAZOLE SODIUM 40 MG VIAL IVPUSH SCH (12:00)
[2022-01-09] MEDS: LACTOBACILLUS ACIDOPHILUS 1 TABLET GT SCH (12:00)
[2022-01-09] MEDS: VITAMIN B COMP W-C 1 EA TABLET (NEPHRO-VITE) PO SCH (12:00)
[2022-01-09] MEDS: CARVEDILOL 12.5 MG TABLET (FP) GT SCH ×2 (12:00→21:59)
[2022-01-09] MEDS: ATORVASTATIN CA 40 MG TABLET (FP) GT SCH (21:59)
[2022-01-10] MEDS: BANATROL PLUS POWDER PACKET PO SCH ×2 (05:17→15:13)
[2022-01-10] MEDS: INSULIN SLIDING SCALE (NOVOLOG) 1 VIAL SQ SCH ×3 (07:48→17:09)
[2022-01-10] MEDS: CARVEDILOL 12.5 MG TABLET (FP) GT SCH (09:55)
[2022-01-10] MEDS: AMINO ACIDS/PROTEIN HYDROLYS 30 ML LIQUID.PKT GT SCH ×2 (09:55→17:09)
[2022-01-10] MEDS: VITAMIN B COMP W-C 1 EA TABLET (NEPHRO-VITE) PO SCH (09:55)
[2022-01-10] MEDS: LACTOBACILLUS ACIDOPHILUS 1 TABLET GT SCH (09:55)
[2022-01-10] MEDS: COLLAGENASE CLOSTRIDIUM HIST. 30 GRAMS TUBE TP SCH (09:56)
[2022-01-10] MEDS: PANTOPRAZOLE SODIUM 40 MG VIAL IVPUSH SCH (09:56)
[2022-01-10] MEDS: FINASTERIDE 5 MG TABLET (FP) NR SCH (11:40)
[2022-01-10] MEDS ORDERED: SODIUM CHLORIDE 250 ML IV PRN (14:03)
[2022-01-10] MEDS ORDERED: EPOETIN ALFA-EPBX 10,000 UNIT/ML VIAL SQ ONE (14:03)
[2022-01-10 18:25] VITALS: BP 129/77; PULSE 92; TEMP 98
== END 2022-01-10 19:05 | DRG 870 ==
LOC: JER 17:32 → JERBED 23:17 → J2W 12-22 15:55
PROVIDERS: ADMIT Internal Medicine; ATTEND Internal Medicine
PROC: 5A1955Z Respiratory Ventilation, Greater than 96 Consecutive Hours (ICD-10-PCS; principal; 2021-12-21)
PROC: 30233N1 Transfusion of Nonautologous Red Blood Cells into Peripheral Vein, Percutaneous Approach (ICD-10-PCS; 2021-12-22)
PROC: 5A1D70Z Performance of Urinary Filtration, Intermittent, Less than 6 Hours Per Day (ICD-10-PCS; 2021-12-23)
DX: A41.9 Sepsis, unspecified organism (principal); L89.153 Pressure ulcer of sacral region, stage 3; N18.6 End stage renal disease; J96.21 Acute and chronic respiratory failure with hypoxia; J96.22 Acute and chronic respiratory failure with hypercapnia; J95.851 Ventilator associated pneumonia; I12.0 Hypertensive chronic kidney disease with stage 5 chronic kidney disease or end stage renal disease; E46 Unspecified protein-calorie malnutrition; J44.0 Chronic obstructive pulmonary disease with (acute) lower respiratory infection; I24.8 Other forms of acute ischemic heart disease; J96.10 Chronic respiratory failure, unspecified whether with hypoxia or hypercapnia; K92.1 Melena; E87.2 Acidosis; N39.0 Urinary tract infection, site not specified; A04.72 Enterocolitis due to Clostridium difficile, not specified as recurrent; E11.22 Type 2 diabetes mellitus with diabetic chronic kidney disease; Z99.2 Dependence on renal dialysis; E03.9 Hypothyroidism, unspecified; E78.5 Hyperlipidemia, unspecified; Z93.0 Tracheostomy status; D72.829 Elevated white blood cell count, unspecified; D64.9 Anemia, unspecified; E83.52 Hypercalcemia; E87.6 Hypokalemia; E66.9 Obesity, unspecified; Z68.27 Body mass index [BMI] 27.0-27.9, adult; N40.0 Benign prostatic hyperplasia without lower urinary tract symptoms
CPT/HCPCS: 36415; 36430; 71045-TC-FY; 74177-TC; 80048; 80053; 80061; 82272; 82438; 82553; 82728; 82803; 82962; 82977; 83036; 83540; 83550; 83605; 83735; 83880; 84100; 84302; 84439; 84443; 84484; 84999; 85025; 85027; 85045; 85610; 85730; 86803; 86850; 86900; 86901; 86922; 87040; 87045; 87046; 87070; 87077; 87186; 87205; 87324; 87340; 87449; 93005; 93010; 93306-TC; 94002; 99285-25; C9803-CS; J1644; P9058; Q5106; U0003; U0005

== ENCOUNTER 2022-02-12 23:04 | Inpatient (IN) | payer OTHER ==
[2022-02-13 00:47] LABS: BASO % 0.3 % (0-2.0); EOS % 3.4 % (0-4.5); HEMATOCRIT 18.4 % (35.4-49); LYMPH % 7.3 % (8-40); MCH 29.9 pg (25.7-33.7); MCHC 32.4 g/dl (32.0-35.9); MEAN CELL VOLUME 92.2 fl (80-96); MEAN PLT VOLUME 9.3 fl (7.5-11.1); MONO % 6.2 % (3.8-10.2); NEUT % 82.8 % (42.8-82.8); PLATELET COUNT 334 10^3/uL (134-434); RBC 1.99 M/mm3 (4.00-5.60); WHITE BLOOD COUNT 14.9 K/mm3 (4.0-10.0)
[2022-02-13 01:07] LABS: ALBUMIN 1.8 g/dl (3.4-5.0); CALCIUM 10.3 mg/dL (8.5-10.1)
[2022-02-13 01:08] LABS: BLOOD UREA NITROGEN 81.5 mg/dL (7-18)
[2022-02-13 01:11] LABS: CREATININE 4.6 mg/dL (0.55-1.3)
[2022-02-13 01:12] LABS: BILIRUBIN,TOTAL 0.2 mg/dL (0.2-1); TOT PROT 6.9 g/dl (6.4-8.2)
[2022-02-13] MEDS: INSULIN SLIDING SCALE (NOVOLOG) 1 VIAL SQ SCH ×4 (08:10→22:47)
[2022-02-13] MEDS ORDERED: EPOETIN ALFA-EPBX 10,000 UNIT/ML VIAL SQ ONE (09:45)
[2022-02-13] MEDS ORDERED: SODIUM CHLORIDE 250 ML IV PRN (09:45)
[2022-02-13] MEDS ORDERED: PATIENT'S OWN MEDICATION (NON-FORMULARY) (Lansoprazole [Prevacid] 30 MG Capsule.Dr) GT SCH (10:00)
[2022-02-13] MEDS ORDERED: ACETAMINOPHEN 1000 MG/100 ML BAG IVPB ONE (10:08)
[2022-02-13] MEDS ORDERED: VANCOMYCIN 1 GM in D5W (PRE-DOCKED) 1,000 MG/250 ML IVPB ONE (10:15)
[2022-02-13 11:16] LABS: EPI CELLS >36 /uL (0-25.1); HYALINE CASTS 2 /uL (0-3.1); PH,URINE >= 9.0 (5.0-8.0); URINE APPEARANCE CLEAR; URINE BACTERIA 18 /uL (0-1359); URINE BILIRUBIN NEGATIVE (NEGATIVE); URINE COLOR YELLOW; URINE GLUCOSE (UA) TRACE (NEGATIVE); URINE KETONE NEGATIVE (NEGATIVE); URINE LEUK ESTERASE 1+ (NEGATIVE); URINE NITRITE NEGATIVE (NEGATIVE); URINE PROTEIN 3+ (NEGATIVE); URINE RBC 20 /uL (0-23.9); URINE UROBILINOGEN 0.2 mg/dL (0.2-1.0); URINE WBC 113 /uL (0-25.8)
[2022-02-13] MEDS ORDERED: PIPERACILLIN/TAZOB 2.25 GM 2.25 GM/50 ML BAG IVPB ONE ×2 (11:37→18:08)
[2022-02-13] MEDS ORDERED: CARVEDILOL 12.5 MG TABLET (FP) ONE ×2 (11:37→22:38)
[2022-02-13] MEDS ORDERED: VANCOMYCIN/WATER FOR INJ (PEG) 1,000 MG/200 ML BAG IVPB ONE ×2 (11:37→11:50)
[2022-02-13 11:42] LABS: CALCIUM 10.6 mg/dL (8.5-10.1)
[2022-02-13 11:43] LABS: ALBUMIN 1.9 g/dl (3.4-5.0); BLOOD UREA NITROGEN 86.6 mg/dL (7-18); MAGNESIUM 3.1 mg/dL (1.8-2.4)
[2022-02-13] MEDS: PIPERACILLIN/TAZOB 2.25 GM 2.25 GM in DEXTROSE 5%-WATER - 50 ML IVPB SCH ×2 (11:45→18:15)
[2022-02-13] MEDS: VITAMIN B COMP W-C 1 EA TABLET (NEPHRO-VITE) GT SCH (11:45)
[2022-02-13] MEDS: FAMOTIDINE 40 MG/5 ML ORAL SUSPENSION GT SCH (11:45)
[2022-02-13] MEDS: CARVEDILOL 12.5 MG TABLET (FP) GT SCH ×2 (11:45→22:42)
[2022-02-13] MEDS: SENNOSIDES 8.8 MG/5 ML BULK BOTTLE GT SCH (11:45)
[2022-02-13] MEDS: FINASTERIDE 5 MG TABLET (FP) NR SCH (11:45)
[2022-02-13 11:46] LABS: CREATININE 4.9 mg/dL (0.55-1.3); PHOSPHOROUS 2.8 mg/dL (2.5-4.9)
[2022-02-13 11:47] LABS: BILIRUBIN,TOTAL 1.4 mg/dL (0.2-1); TOT PROT 7.2 g/dl (6.4-8.2)
[2022-02-13] MEDS ORDERED: VANCOMYCIN 1 GM/200 ML PREMIX BAG IVPB ONE (12:00)
[2022-02-13 12:37] LABS: HEMATOCRIT 24.1 % (35.4-49); HEMOGLOBIN 7.8 GM/dL (11.7-16.9); MCH 29.3 pg (25.7-33.7); MCHC 32.6 g/dl (32.0-35.9); MEAN PLT VOLUME 9.4 fl (7.5-11.1); PLATELET COUNT 315 10^3/uL (134-434); RBC 2.68 M/mm3 (4.00-5.60); RDW 17.9 % (11.9-15.9)
[2022-02-13] MEDS ORDERED: PIPERACILLIN/TAZOB 2.25 GM 2.25 GM in DEXTROSE 5%-WATER - 50 ML IVPB SCH (20:00)
[2022-02-13 20:34] LABS: HEMATOCRIT 25.6 % (35.4-49); HEMOGLOBIN 8.4 GM/dL (11.7-16.9); MCH 29.2 pg (25.7-33.7); MCHC 32.8 g/dl (32.0-35.9); MEAN CELL VOLUME 88.8 fl (80-96); MEAN PLT VOLUME 9.2 fl (7.5-11.1); PLATELET COUNT 340 10^3/uL (134-434); RBC 2.89 M/mm3 (4.00-5.60); RDW 18.2 % (11.9-15.9); WHITE BLOOD COUNT 21.5 K/mm3 (4.0-10.0)
[2022-02-13 20:41] LABS: INR 1.4 (0.83-1.09); PROTHROMBIN TIME (PATIENT) 16.1 SEC (9.7-13.0)
[2022-02-13] MEDS ORDERED: ATORVASTATIN CA 40 MG TABLET (FP) ONE (22:38)
[2022-02-13] MEDS: ATORVASTATIN CA 40 MG TABLET (FP) GT SCH (22:42)
[2022-02-14] MEDS ORDERED: PIPERACILLIN/TAZOB 2.25 GM 2.25 GM/50 ML BAG IVPB ONE ×2 (03:21→09:44)
[2022-02-14] MEDS: PIPERACILLIN/TAZOB 2.25 GM 2.25 GM in DEXTROSE 5%-WATER - 50 ML IVPB SCH ×3 (03:32→21:38)
[2022-02-14] MEDS: INSULIN SLIDING SCALE (NOVOLOG) 1 VIAL SQ SCH ×4 (07:55→22:45)
[2022-02-14 08:06] LABS: PARATHYROID HORM INTACT 130 pg/mL (15-65)
[2022-02-14 08:14] LABS: HEMATOCRIT 25.4 % (35.4-49); HEMOGLOBIN 8.3 GM/dL (11.7-16.9); MCH 29.3 pg (25.7-33.7); MCHC 32.8 g/dl (32.0-35.9); MEAN CELL VOLUME 89.2 fl (80-96); MEAN PLT VOLUME 9.5 fl (7.5-11.1); PLATELET COUNT 361 10^3/uL (134-434); RBC 2.85 M/mm3 (4.00-5.60); RDW 17.6 % (11.9-15.9); WHITE BLOOD COUNT 21.6 K/mm3 (4.0-10.0)
[2022-02-14 08:28] LABS: INR 1.46 (0.83-1.09); PROTHROMBIN TIME (PATIENT) 16.8 SEC (9.7-13.0)
[2022-02-14 08:40] LABS: CALCIUM 10.5 mg/dL (8.5-10.1)
[2022-02-14 08:41] LABS: ALBUMIN 1.8 g/dl (3.4-5.0); BLOOD UREA NITROGEN 99.9 mg/dL (7-18); MAGNESIUM 3.1 mg/dL (1.8-2.4)
[2022-02-14 08:44] LABS: CREATININE 5.7 mg/dL (0.55-1.3); PHOSPHOROUS 2.8 mg/dL (2.5-4.9)
[2022-02-14 08:45] LABS: BILIRUBIN,TOTAL 0.5 mg/dL (0.2-1)
[2022-02-14] MEDS ORDERED: ACETAMINOPHEN INJECTION 100 ML IVPB ONE (10:01)
[2022-02-14] MEDS ORDERED: ACETAMINOPHEN 1000 MG/100 ML BAG IVPB PRN (10:04)
[2022-02-14] MEDS ORDERED: CARVEDILOL 12.5 MG TABLET (FP) ONE (10:05)
[2022-02-14] MEDS ORDERED: FAMOTIDINE 20 MG TABLET ONE (10:05)
[2022-02-14] MEDS: CARVEDILOL 12.5 MG TABLET (FP) GT SCH ×2 (10:28→21:39)
[2022-02-14] MEDS: FAMOTIDINE 40 MG/5 ML ORAL SUSPENSION GT SCH (10:28)
[2022-02-14] MEDS: SENNOSIDES 8.8 MG/5 ML BULK BOTTLE GT SCH (10:28)
[2022-02-14] MEDS: FINASTERIDE 5 MG TABLET (FP) NR SCH (10:28)
[2022-02-14] MEDS: VITAMIN B COMP W-C 1 EA TABLET (NEPHRO-VITE) GT SCH (10:28)
[2022-02-14 19:42] VITALS: BMI 27.8
[2022-02-14] MEDS ORDERED: PIPERACILLIN/TAZOBACTAM 2.25 GM VIAL IVPB ONE (21:16)
[2022-02-14] MEDS ORDERED: DEXTROSE 5%-WATER - 50 ML IVPB ONE (21:17)
[2022-02-14] MEDS: ATORVASTATIN CA 40 MG TABLET (FP) GT SCH (21:39)
[2022-02-15] MEDS: COLLAGENASE CLOSTRIDIUM HIST. 30 GRAMS TUBE TP SCH ×2 (02:34→11:03)
[2022-02-15] MEDS: PIPERACILLIN/TAZOB 2.25 GM 2.25 GM in DEXTROSE 5%-WATER - 50 ML IVPB SCH ×3 (04:32→22:27)
[2022-02-15] MEDS ORDERED: PIPERACILLIN/TAZOBACTAM 2.25 GM VIAL IVPB ONE ×3 (04:57→22:21)
[2022-02-15] MEDS ORDERED: DEXTROSE 5%-WATER - 50 ML IVPB ONE ×3 (04:57→22:22)
[2022-02-15] MEDS: INSULIN SLIDING SCALE (NOVOLOG) 1 VIAL SQ SCH ×4 (06:04→22:27)
[2022-02-15] MEDS: FAMOTIDINE 40 MG/5 ML ORAL SUSPENSION GT SCH (11:02)
[2022-02-15] MEDS: FINASTERIDE 5 MG TABLET (FP) NR SCH (11:02)
[2022-02-15] MEDS: VITAMIN B COMP W-C 1 EA TABLET (NEPHRO-VITE) GT SCH (11:02)
[2022-02-15] MEDS: CARVEDILOL 12.5 MG TABLET (FP) GT SCH ×2 (11:02→22:28)
[2022-02-15] MEDS: SENNOSIDES 8.8 MG/5 ML BULK BOTTLE GT SCH (11:02)
[2022-02-15] MEDS: ACETAMINOPHEN 1000 MG/100 ML BAG IVPB PRN ×2 (11:16→19:05)
[2022-02-15] MEDS: AMINO ACIDS/PROTEIN HYDROLYS 30 ML LIQUID.PKT PEG SCH (18:20)
[2022-02-15] MEDS: ATORVASTATIN CA 40 MG TABLET (FP) GT SCH (22:28)
[2022-02-16] MEDS ORDERED: PIPERACILLIN/TAZOBACTAM 2.25 GM VIAL IVPB ONE ×2 (04:14→12:07)
[2022-02-16] MEDS ORDERED: DEXTROSE 5%-WATER - 50 ML IVPB ONE ×2 (04:14→12:07)
[2022-02-16] MEDS: PIPERACILLIN/TAZOB 2.25 GM 2.25 GM in DEXTROSE 5%-WATER - 50 ML IVPB SCH ×2 (04:21→12:18)
[2022-02-16] MEDS: INSULIN SLIDING SCALE (NOVOLOG) 1 VIAL SQ SCH ×4 (06:07→23:59)
[2022-02-16] MEDS ORDERED: SODIUM CHLORIDE 250 ML IV PRN (07:32)
[2022-02-16] MEDS ORDERED: EPOETIN ALFA-EPBX 4,000 UNIT/ML VIAL SQ ONE (08:15)
[2022-02-16 09:29] LABS: CALCIUM 10.3 mg/dL (8.5-10.1)
[2022-02-16 09:33] LABS: BLOOD UREA NITROGEN 62.1 mg/dL (7-18)
[2022-02-16 10:17] LABS: BASO % 0.3 % (0-2.0); EOS % 1.4 % (0-4.5); HEMATOCRIT 21.5 % (35.4-49); LYMPH % 8.2 % (8-40); MCH 29.5 pg (25.7-33.7); MCHC 32.3 g/dl (32.0-35.9); MEAN CELL VOLUME 91.5 fl (80-96); MEAN PLT VOLUME 9.4 fl (7.5-11.1); MONO % 5.6 % (3.8-10.2); NEUT % 84.5 % (42.8-82.8); PLATELET COUNT 367 10^3/uL (134-434); RBC 2.34 M/mm3 (4.00-5.60); RDW 17.5 % (11.9-15.9); WHITE BLOOD COUNT 17.7 K/mm3 (4.0-10.0)
[2022-02-16 10:27] LABS: HEMOGLOBIN 6.9 GM/dL (11.7-16.9)
[2022-02-16] MEDS: AMINO ACIDS/PROTEIN HYDROLYS 30 ML LIQUID.PKT PEG SCH ×4 (12:08→16:40)
[2022-02-16] MEDS: VITAMIN B COMP W-C 1 EA TABLET (NEPHRO-VITE) GT SCH ×2 (12:15→13:40)
[2022-02-16] MEDS: CARVEDILOL 12.5 MG TABLET (FP) GT SCH ×2 (12:15→23:59)
[2022-02-16] MEDS: SENNOSIDES 8.8 MG/5 ML BULK BOTTLE GT SCH ×2 (12:15→13:41)
[2022-02-16] MEDS: FINASTERIDE 5 MG TABLET (FP) NR SCH ×2 (12:15→13:40)
[2022-02-16] MEDS: FAMOTIDINE 40 MG/5 ML ORAL SUSPENSION GT SCH ×2 (12:15→13:40)
[2022-02-16] MEDS: COLLAGENASE CLOSTRIDIUM HIST. 30 GRAMS TUBE TP SCH (12:18)
[2022-02-16] MEDS: SODIUM HYPOCHLORITE 0.5% 473 ML- BULK BOTTLE TP SCH (15:50)
[2022-02-16] MEDS ORDERED: VANCOMYCIN/WATER FOR INJ (PEG) 1,000 MG/200 ML BAG IVPB ONE (16:21)
[2022-02-16] MEDS ORDERED: DEXTROSE 5%-WATER 100 ML IVPB ONE (17:58)
[2022-02-16] MEDS ORDERED: MEROPENEM 500 MG VIAL (RESTRICTED TO ID) IVPB ONE (17:58)
[2022-02-16] MEDS: MEROPENEM 500 MG in DEXTROSE 5%-WATER 100 ML IVPB SCH (18:10)
[2022-02-16] MEDS: ATORVASTATIN CA 40 MG TABLET (FP) GT SCH (23:59)
[2022-02-17] MEDS ORDERED: MEROPENEM 500 MG VIAL (RESTRICTED TO ID) IVPB ONE ×2 (01:20→09:08)
[2022-02-17] MEDS ORDERED: DEXTROSE 5%-WATER 100 ML IVPB ONE ×2 (01:21→09:08)
[2022-02-17] MEDS: MEROPENEM 500 MG in DEXTROSE 5%-WATER 100 ML IVPB SCH ×3 (01:37→17:28)
[2022-02-17] MEDS: INSULIN SLIDING SCALE (NOVOLOG) 1 VIAL SQ SCH ×4 (06:35→22:42)
[2022-02-17] MEDS ORDERED: PNEUMOC 20-VAL CONJ-DIP CRM/PF 0.5 ML SYRINGE IM ONE (10:00)
[2022-02-17] MEDS: FINASTERIDE 5 MG TABLET (FP) NR SCH (10:58)
[2022-02-17] MEDS: VITAMIN B COMP W-C 1 EA TABLET (NEPHRO-VITE) GT SCH (10:58)
[2022-02-17] MEDS: SENNOSIDES 8.8 MG/5 ML BULK BOTTLE GT SCH (10:59)
[2022-02-17] MEDS: CARVEDILOL 12.5 MG TABLET (FP) GT SCH ×2 (10:59→22:42)
[2022-02-17] MEDS: FAMOTIDINE 40 MG/5 ML ORAL SUSPENSION GT SCH (11:00)
[2022-02-17] MEDS: SODIUM HYPOCHLORITE 0.5% 473 ML- BULK BOTTLE TP SCH (11:00)
[2022-02-17] MEDS: AMINO ACIDS/PROTEIN HYDROLYS 30 ML LIQUID.PKT PEG SCH ×3 (11:00→17:29)
[2022-02-17] MEDS ORDERED: SODIUM CHLORIDE 250 ML IV PRN (15:36)
[2022-02-17] MEDS: ATORVASTATIN CA 40 MG TABLET (FP) GT SCH (22:42)
[2022-02-17] MEDS: LACTOBACILLUS ACIDOPHILUS 1 TABLET NGT SCH (22:42)
[2022-02-17] MEDS ORDERED: ACETAMINOPHEN 1000 MG/100 ML BAG IVPB ONE (22:46)
[2022-02-18] MEDS ORDERED: MEROPENEM 500 MG VIAL (RESTRICTED TO ID) IVPB ONE ×3 (01:03→17:39)
[2022-02-18] MEDS ORDERED: DEXTROSE 5%-WATER 100 ML IVPB ONE ×3 (01:03→17:39)
[2022-02-18] MEDS: MEROPENEM 500 MG in DEXTROSE 5%-WATER 100 ML IVPB SCH ×3 (01:10→17:56)
[2022-02-18] MEDS: INSULIN SLIDING SCALE (NOVOLOG) 1 VIAL SQ SCH ×4 (06:19→21:36)
[2022-02-18] MEDS ORDERED: EPOETIN ALFA-EPBX 10,000 UNIT/ML VIAL IVPUSH ONE (08:30)
[2022-02-18 08:50] LABS: BASO % 0.4 % (0-2.0); EOS % 2.1 % (0-4.5); HEMATOCRIT 24.5 % (35.4-49); HEMOGLOBIN 8.1 GM/dL (11.7-16.9); MCH 29.6 pg (25.7-33.7); MCHC 32.9 g/dl (32.0-35.9); MEAN CELL VOLUME 89.8 fl (80-96); MEAN PLT VOLUME 9.1 fl (7.5-11.1); MONO % 3.4 % (3.8-10.2); NEUT % 84.1 % (42.8-82.8); PLATELET COUNT 366 10^3/uL (134-434); RBC 2.73 M/mm3 (4.00-5.60); WHITE BLOOD COUNT 15.2 K/mm3 (4.0-10.0)
[2022-02-18 09:14] LABS: ALBUMIN 1.6 g/dl (3.4-5.0); CALCIUM 10.5 mg/dL (8.5-10.1)
[2022-02-18 09:15] LABS: BLOOD UREA NITROGEN 53.5 mg/dL (7-18); MAGNESIUM 2.7 mg/dL (1.8-2.4)
[2022-02-18 09:17] LABS: CREATININE 4.6 mg/dL (0.55-1.3)
[2022-02-18 09:18] LABS: PHOSPHOROUS 3.2 mg/dL (2.5-4.9)
[2022-02-18 09:19] LABS: BILIRUBIN,TOTAL 0.4 mg/dL (0.2-1); TOT PROT 6.2 g/dl (6.4-8.2)
[2022-02-18] MEDS: AMINO ACIDS/PROTEIN HYDROLYS 30 ML LIQUID.PKT PEG SCH ×3 (12:17→17:56)
[2022-02-18] MEDS: FINASTERIDE 5 MG TABLET (FP) NR SCH (12:28)
[2022-02-18] MEDS: LACTOBACILLUS ACIDOPHILUS 1 TABLET NGT SCH ×2 (12:28→21:23)
[2022-02-18] MEDS: VITAMIN B COMP W-C 1 EA TABLET (NEPHRO-VITE) GT SCH (12:28)
[2022-02-18] MEDS: CARVEDILOL 12.5 MG TABLET (FP) GT SCH ×2 (12:28→21:23)
[2022-02-18] MEDS: FAMOTIDINE 40 MG/5 ML ORAL SUSPENSION GT SCH (12:29)
[2022-02-18] MEDS: SENNOSIDES 8.8 MG/5 ML BULK BOTTLE GT SCH (12:30)
[2022-02-18] MEDS ORDERED: POTASSIUM CHLORIDE ORAL LIQUID 20 MEQ/15 ML PEG ONE (13:41)
[2022-02-18] MEDS: SODIUM HYPOCHLORITE 0.5% 473 ML- BULK BOTTLE TP SCH (14:00)
[2022-02-18 16:05] LABS: CALCIUM 10.1 mg/dL (8.5-10.1)
[2022-02-18 16:09] LABS: CREATININE 2.6 mg/dL (0.55-1.3)
[2022-02-18 16:30] LABS: BLOOD UREA NITROGEN 25.9 mg/dL (7-18)
[2022-02-18] MEDS ORDERED: INSULIN SLIDING SCALE (NOVOLOG) 1 VIAL SQ ONE (19:06)
[2022-02-18] MEDS ORDERED: VANCOMYCIN/WATER 1250 MG 1,250 MG/250 ML BAG IVPB ONE (19:21)
[2022-02-18] MEDS: ATORVASTATIN CA 40 MG TABLET (FP) GT SCH (21:23)
[2022-02-18] MEDS: INSULIN (LEVEMIR) 100 UNITS/ML UNITS SQ SCH (21:35)
[2022-02-19] MEDS ORDERED: MEROPENEM 500 MG VIAL (RESTRICTED TO ID) IVPB ONE ×2 (01:19→09:02)
[2022-02-19] MEDS ORDERED: DEXTROSE 5%-WATER 100 ML IVPB ONE ×2 (01:19→09:03)
[2022-02-19] MEDS: MEROPENEM 500 MG in DEXTROSE 5%-WATER 100 ML IVPB SCH ×2 (02:52→09:06)
[2022-02-19] MEDS: INSULIN (LEVEMIR) 100 UNITS/ML UNITS SQ SCH ×2 (06:52→22:49)
[2022-02-19] MEDS: INSULIN SLIDING SCALE (NOVOLOG) 1 VIAL SQ SCH ×4 (06:53→22:50)
[2022-02-19] MEDS ORDERED: INSULIN (LEVEMIR) 100 UNITS/ML UNITS SQ SCH (08:11)
[2022-02-19] MEDS: FINASTERIDE 5 MG TABLET (FP) NR SCH (09:05)
[2022-02-19] MEDS: VITAMIN B COMP W-C 1 EA TABLET (NEPHRO-VITE) GT SCH (09:05)
[2022-02-19] MEDS: CARVEDILOL 12.5 MG TABLET (FP) GT SCH ×2 (09:05→22:44)
[2022-02-19] MEDS: FAMOTIDINE 40 MG/5 ML ORAL SUSPENSION GT SCH (09:06)
[2022-02-19] MEDS: LACTOBACILLUS ACIDOPHILUS 1 TABLET NGT SCH ×2 (09:06→22:44)
[2022-02-19] MEDS: AMINO ACIDS/PROTEIN HYDROLYS 30 ML LIQUID.PKT PEG SCH ×3 (09:07→17:07)
[2022-02-19] MEDS: SENNOSIDES 8.8 MG/5 ML BULK BOTTLE GT SCH (09:14)
[2022-02-19 10:38] LABS: BLOOD UREA NITROGEN 37.4 mg/dL (7-18); CALCIUM 10.3 mg/dL (8.5-10.1)
[2022-02-19 10:42] LABS: CREATININE 3.4 mg/dL (0.55-1.3)
[2022-02-19] MEDS: SODIUM HYPOCHLORITE 0.5% 473 ML- BULK BOTTLE TP SCH (15:29)
[2022-02-19] MEDS: CEFTAZIDIME/AVIBACTAM 0.94 GM in DEXTROSE 5%-WATER - 100 ML IVPB SCH (15:29)
[2022-02-19] MEDS: INSULIN (NOVOLOG) ASPART 100 UNITS/ML 10ML VIAL SQ SCH (17:13)
[2022-02-19] MEDS: ATORVASTATIN CA 40 MG TABLET (FP) GT SCH (22:44)
[2022-02-20] MEDS: INSULIN SLIDING SCALE (NOVOLOG) 1 VIAL SQ SCH ×4 (06:34→23:08)
[2022-02-20] MEDS: INSULIN (NOVOLOG) ASPART 100 UNITS/ML 10ML VIAL SQ SCH ×3 (06:34→16:24)
[2022-02-20] MEDS: INSULIN (LEVEMIR) 100 UNITS/ML UNITS SQ SCH ×2 (06:35→23:07)
[2022-02-20 09:38] LABS: HEMOGLOBIN 8.2 GM/dL (11.7-16.9); MCH 28.8 pg (25.7-33.7); MCHC 31.6 g/dl (32.0-35.9); MEAN CELL VOLUME 91.3 fl (80-96); MEAN PLT VOLUME 9.5 fl (7.5-11.1); PLATELET COUNT 408 10^3/uL (134-434); RBC 2.85 M/mm3 (4.00-5.60); RDW 16.9 % (11.9-15.9); WHITE BLOOD COUNT 19.2 K/mm3 (4.0-10.0)
[2022-02-20 09:53] LABS: CALCIUM 10.5 mg/dL (8.5-10.1)
[2022-02-20 09:54] LABS: BLOOD UREA NITROGEN 51.3 mg/dL (7-18)
[2022-02-20 09:57] LABS: CREATININE 4.4 mg/dL (0.55-1.3)
[2022-02-20] MEDS: FINASTERIDE 5 MG TABLET (FP) NR SCH (11:41)
[2022-02-20] MEDS: CARVEDILOL 12.5 MG TABLET (FP) GT SCH ×2 (11:41→23:08)
[2022-02-20] MEDS: AMINO ACIDS/PROTEIN HYDROLYS 30 ML LIQUID.PKT PEG SCH ×3 (11:41→17:31)
[2022-02-20] MEDS: ZINC SULFATE 220 MG CAPSULE (FP) PO SCH (11:41)
[2022-02-20] MEDS: FAMOTIDINE 40 MG/5 ML ORAL SUSPENSION GT SCH (11:42)
[2022-02-20] MEDS: LACTOBACILLUS ACIDOPHILUS 1 TABLET NGT SCH ×2 (11:42→23:08)
[2022-02-20] MEDS: VITAMIN B COMP W-C 1 EA TABLET (NEPHRO-VITE) GT SCH (11:42)
[2022-02-20] MEDS: SENNOSIDES 8.8 MG/5 ML BULK BOTTLE GT SCH (11:43)
[2022-02-20] MEDS: SODIUM HYPOCHLORITE 0.5% 473 ML- BULK BOTTLE TP SCH (12:03)
[2022-02-20] MEDS ORDERED: DEXTROSE 5% IVPB ONE (17:00)
[2022-02-20] MEDS ORDERED: GENTAMICIN IVPB ONE (17:00)
[2022-02-20] MEDS ORDERED: WATER IVPB ONE (17:00)
[2022-02-20] MEDS: ATORVASTATIN CA 40 MG TABLET (FP) GT SCH (23:08)
[2022-02-21] MEDS: INSULIN (LEVEMIR) 100 UNITS/ML UNITS SQ SCH (06:42)
[2022-02-21] MEDS: INSULIN (NOVOLOG) ASPART 100 UNITS/ML 10ML VIAL SQ SCH ×3 (06:43→18:24)
[2022-02-21] MEDS: INSULIN SLIDING SCALE (NOVOLOG) 1 VIAL SQ SCH ×3 (06:43→18:22)
[2022-02-21] MEDS ORDERED: EPOETIN ALFA-EPBX 10,000 UNIT/ML VIAL IVPUSH ONE (09:00)
[2022-02-21 09:40] LABS: BASO % 0.3 % (0-2.0); HEMATOCRIT 23.2 % (35.4-49); HEMOGLOBIN 7.8 GM/dL (11.7-16.9); LYMPH % 7.7 % (8-40); MCH 29.6 pg (25.7-33.7); MCHC 33.4 g/dl (32.0-35.9); MEAN CELL VOLUME 88.6 fl (80-96); MONO % 4.6 % (3.8-10.2); NEUT % 86.4 % (42.8-82.8); PLATELET COUNT 354 10^3/uL (134-434); RBC 2.62 M/mm3 (4.00-5.60); RDW 17.1 % (11.9-15.9); WHITE BLOOD COUNT 17.6 K/mm3 (4.0-10.0)
[2022-02-21] MEDS ORDERED: SODIUM CHLORIDE 250 ML IV PRN (10:00)
[2022-02-21 10:06] LABS: CALCIUM 10.1 mg/dL (8.5-10.1)
[2022-02-21 10:07] LABS: ALBUMIN 1.7 g/dl (3.4-5.0); BLOOD UREA NITROGEN 74.4 mg/dL (7-18); MAGNESIUM 2.6 mg/dL (1.8-2.4)
[2022-02-21 10:10] LABS: CREATININE 5.2 mg/dL (0.55-1.3)
[2022-02-21 10:11] LABS: BILIRUBIN,TOTAL 0.3 mg/dL (0.2-1); TOT PROT 6.2 g/dl (6.4-8.2)
[2022-02-21] MEDS ORDERED: POTASSIUM CHLORIDE ORAL LIQUID 20 MEQ/15 ML GT ONE ×2 (10:30→14:00)
[2022-02-21] MEDS: AMINO ACIDS/PROTEIN HYDROLYS 30 ML LIQUID.PKT PEG SCH ×3 (15:46→18:24)
[2022-02-21] MEDS: CARVEDILOL 12.5 MG TABLET (FP) GT SCH (15:47)
[2022-02-21] MEDS: LACTOBACILLUS ACIDOPHILUS 1 TABLET NGT SCH (15:47)
[2022-02-21] MEDS: ZINC SULFATE 220 MG CAPSULE (FP) PO SCH (15:48)
[2022-02-21] MEDS: VITAMIN B COMP W-C 1 EA TABLET (NEPHRO-VITE) GT SCH (15:48)
[2022-02-21] MEDS: FAMOTIDINE 40 MG/5 ML ORAL SUSPENSION GT SCH (15:48)
[2022-02-21] MEDS: SENNOSIDES 8.8 MG/5 ML BULK BOTTLE GT SCH (15:49)
[2022-02-21] MEDS: FINASTERIDE 5 MG TABLET (FP) NR SCH (15:49)
[2022-02-21] MEDS: SODIUM HYPOCHLORITE 0.5% 473 ML- BULK BOTTLE TP SCH (16:39)
[2022-02-21] MEDS: CEFTAZIDIME/AVIBACTAM 0.94 GM in DEXTROSE 5%-WATER - 100 ML IVPB SCH (18:25)
[2022-02-22] MEDS: LACTOBACILLUS ACIDOPHILUS 1 TABLET NGT SCH ×3 (00:10→21:35)
[2022-02-22] MEDS: CARVEDILOL 12.5 MG TABLET (FP) GT SCH ×3 (00:10→21:35)
[2022-02-22] MEDS: INSULIN (LEVEMIR) 100 UNITS/ML UNITS SQ SCH ×3 (00:10→21:35)
[2022-02-22] MEDS: ATORVASTATIN CA 40 MG TABLET (FP) GT SCH ×2 (00:10→21:35)
[2022-02-22] MEDS: INSULIN SLIDING SCALE (NOVOLOG) 1 VIAL SQ SCH ×5 (00:11→21:35)
[2022-02-22] MEDS: INSULIN (NOVOLOG) ASPART 100 UNITS/ML 10ML VIAL SQ SCH ×3 (06:35→18:37)
[2022-02-22] MEDS: FINASTERIDE 5 MG TABLET (FP) NR SCH (10:13)
[2022-02-22] MEDS: ZINC SULFATE 220 MG CAPSULE (FP) PO SCH (10:13)
[2022-02-22] MEDS: AMINO ACIDS/PROTEIN HYDROLYS 30 ML LIQUID.PKT PEG SCH ×3 (10:14→18:39)
[2022-02-22] MEDS: SODIUM HYPOCHLORITE 0.5% 473 ML- BULK BOTTLE TP SCH (10:14)
[2022-02-22] MEDS: VITAMIN B COMP W-C 1 EA TABLET (NEPHRO-VITE) GT SCH (10:14)
[2022-02-22] MEDS: SENNOSIDES 8.8 MG/5 ML BULK BOTTLE GT SCH (10:15)
[2022-02-22] MEDS: FAMOTIDINE 40 MG/5 ML ORAL SUSPENSION GT SCH (10:16)
[2022-02-22] MEDS ORDERED: SODIUM CHLORIDE 250 ML IV PRN (19:53)
[2022-02-23] MEDS: INSULIN (NOVOLOG) ASPART 100 UNITS/ML 10ML VIAL SQ SCH ×3 (06:28→18:06)
[2022-02-23] MEDS: INSULIN (LEVEMIR) 100 UNITS/ML UNITS SQ SCH ×2 (06:31→22:55)
[2022-02-23] MEDS: INSULIN SLIDING SCALE (NOVOLOG) 1 VIAL SQ SCH ×4 (06:31→22:56)
[2022-02-23] MEDS ORDERED: EPOETIN ALFA-EPBX 20,000 UNIT/ML VIAL IVPUSH ONE (08:00)
[2022-02-23] MEDS: AMINO ACIDS/PROTEIN HYDROLYS 30 ML LIQUID.PKT PEG SCH ×3 (08:30→18:01)
[2022-02-23 09:27] LABS: BLOOD UREA NITROGEN 68.1 mg/dL (7-18); CALCIUM 10.5 mg/dL (8.5-10.1)
[2022-02-23 09:31] LABS: CREATININE 4.6 mg/dL (0.55-1.3)
[2022-02-23] MEDS: ZINC SULFATE 220 MG CAPSULE (FP) PO SCH (12:11)
[2022-02-23] MEDS: LACTOBACILLUS ACIDOPHILUS 1 TABLET NGT SCH ×2 (12:11→22:56)
[2022-02-23] MEDS: VITAMIN B COMP W-C 1 EA TABLET (NEPHRO-VITE) GT SCH (12:11)
[2022-02-23] MEDS: CARVEDILOL 12.5 MG TABLET (FP) GT SCH ×2 (12:11→22:56)
[2022-02-23] MEDS: FINASTERIDE 5 MG TABLET (FP) NR SCH (12:11)
[2022-02-23] MEDS: FAMOTIDINE 40 MG/5 ML ORAL SUSPENSION GT SCH (12:12)
[2022-02-23] MEDS: SODIUM HYPOCHLORITE 0.5% 473 ML- BULK BOTTLE TP SCH (13:27)
[2022-02-23] MEDS: SENNOSIDES 8.8 MG/5 ML BULK BOTTLE GT SCH (13:27)
[2022-02-23 17:46] LABS: ALBUMIN 1.8 g/dl (3.4-5.0); MAGNESIUM 2.4 mg/dL (1.8-2.4)
[2022-02-23 17:49] LABS: PHOSPHOROUS 4.5 mg/dL (2.5-4.9)
[2022-02-23 17:51] LABS: BILIRUBIN,TOTAL 0.8 mg/dL (0.2-1); TOT PROT 6.4 g/dl (6.4-8.2)
[2022-02-23] MEDS: CEFTAZIDIME/AVIBACTAM 0.94 GM in DEXTROSE 5%-WATER - 100 ML IVPB SCH (18:01)
[2022-02-23] MEDS: ATORVASTATIN CA 40 MG TABLET (FP) GT SCH (22:56)
[2022-02-24] MEDS: INSULIN (NOVOLOG) ASPART 100 UNITS/ML 10ML VIAL SQ SCH ×3 (06:46→16:43)
[2022-02-24] MEDS: INSULIN SLIDING SCALE (NOVOLOG) 1 VIAL SQ SCH ×4 (06:46→22:37)
[2022-02-24] MEDS: INSULIN (LEVEMIR) 100 UNITS/ML UNITS SQ SCH ×2 (06:46→22:36)
[2022-02-24] MEDS: LACTOBACILLUS ACIDOPHILUS 1 TABLET NGT SCH ×2 (10:10→22:36)
[2022-02-24] MEDS: AMINO ACIDS/PROTEIN HYDROLYS 30 ML LIQUID.PKT PEG SCH ×3 (10:10→16:43)
[2022-02-24] MEDS: CARVEDILOL 12.5 MG TABLET (FP) GT SCH ×2 (10:11→22:36)
[2022-02-24] MEDS: FINASTERIDE 5 MG TABLET (FP) NR SCH (10:11)
[2022-02-24] MEDS: FAMOTIDINE 40 MG/5 ML ORAL SUSPENSION GT SCH (10:11)
[2022-02-24] MEDS: ZINC SULFATE 220 MG CAPSULE (FP) PO SCH (10:11)
[2022-02-24] MEDS: SENNOSIDES 8.8 MG/5 ML BULK BOTTLE GT SCH (10:11)
[2022-02-24] MEDS: VITAMIN B COMP W-C 1 EA TABLET (NEPHRO-VITE) GT SCH (10:11)
[2022-02-24] MEDS: ATORVASTATIN CA 40 MG TABLET (FP) GT SCH (22:36)
[2022-02-25] MEDS: INSULIN (NOVOLOG) ASPART 100 UNITS/ML 10ML VIAL SQ SCH ×3 (06:10→17:13)
[2022-02-25] MEDS: INSULIN SLIDING SCALE (NOVOLOG) 1 VIAL SQ SCH ×4 (06:10→22:36)
[2022-02-25] MEDS: INSULIN (LEVEMIR) 100 UNITS/ML UNITS SQ SCH ×2 (06:10→22:35)
[2022-02-25] MEDS ORDERED: SODIUM CHLORIDE 250 ML IV PRN (08:25)
[2022-02-25] MEDS ORDERED: EPOETIN ALFA-EPBX 20,000 UNIT/ML VIAL SQ ONE (08:50)
[2022-02-25] MEDS: ZINC SULFATE 220 MG CAPSULE (FP) PO SCH (11:51)
[2022-02-25] MEDS: FINASTERIDE 5 MG TABLET (FP) NR SCH (11:51)
[2022-02-25] MEDS: LACTOBACILLUS ACIDOPHILUS 1 TABLET NGT SCH ×2 (11:51→22:35)
[2022-02-25] MEDS: AMINO ACIDS/PROTEIN HYDROLYS 30 ML LIQUID.PKT PEG SCH ×3 (11:51→17:08)
[2022-02-25] MEDS: CARVEDILOL 12.5 MG TABLET (FP) GT SCH ×2 (11:51→22:35)
[2022-02-25] MEDS: VITAMIN B COMP W-C 1 EA TABLET (NEPHRO-VITE) GT SCH (11:51)
[2022-02-25] MEDS: SODIUM HYPOCHLORITE 0.5% 473 ML- BULK BOTTLE TP SCH (11:52)
[2022-02-25] MEDS: FAMOTIDINE 40 MG/5 ML ORAL SUSPENSION GT SCH (11:54)
[2022-02-25] MEDS: SENNOSIDES 8.8 MG/5 ML BULK BOTTLE GT SCH (11:56)
[2022-02-25] MEDS: CEFTAZIDIME/AVIBACTAM 0.94 GM in DEXTROSE 5%-WATER - 100 ML IVPB SCH (17:16)
[2022-02-25] MEDS: ATORVASTATIN CA 40 MG TABLET (FP) GT SCH (22:35)
[2022-02-26] MEDS: INSULIN (LEVEMIR) 100 UNITS/ML UNITS SQ SCH ×2 (06:14→22:01)
[2022-02-26] MEDS: INSULIN (NOVOLOG) ASPART 100 UNITS/ML 10ML VIAL SQ SCH ×3 (06:15→17:22)
[2022-02-26] MEDS: INSULIN SLIDING SCALE (NOVOLOG) 1 VIAL SQ SCH ×4 (06:15→22:01)
[2022-02-26] MEDS: CARVEDILOL 12.5 MG TABLET (FP) GT SCH ×2 (10:43→22:01)
[2022-02-26] MEDS: LACTOBACILLUS ACIDOPHILUS 1 TABLET NGT SCH ×2 (10:43→22:01)
[2022-02-26] MEDS: ZINC SULFATE 220 MG CAPSULE (FP) PO SCH (10:43)
[2022-02-26] MEDS: VITAMIN B COMP W-C 1 EA TABLET (NEPHRO-VITE) GT SCH (10:43)
[2022-02-26] MEDS: AMINO ACIDS/PROTEIN HYDROLYS 30 ML LIQUID.PKT PEG SCH ×3 (10:43→17:22)
[2022-02-26] MEDS: FINASTERIDE 5 MG TABLET (FP) NR SCH (10:43)
[2022-02-26] MEDS: SODIUM HYPOCHLORITE 0.5% 473 ML- BULK BOTTLE TP SCH ×2 (10:44→11:44)
[2022-02-26] MEDS: FAMOTIDINE 40 MG/5 ML ORAL SUSPENSION GT SCH (10:52)
[2022-02-26] MEDS: SENNOSIDES 8.8 MG/5 ML BULK BOTTLE GT SCH (10:52)
[2022-02-26] MEDS: ALBUTEROL SO4 2.5/IPRATROPIUM 0.5 INH SOL 3 ML VIAL.NEB. NEB SCH ×2 (15:04→19:58)
[2022-02-26] MEDS: ATORVASTATIN CA 40 MG TABLET (FP) GT SCH (22:01)
[2022-02-27] MEDS: INSULIN (NOVOLOG) ASPART 100 UNITS/ML 10ML VIAL SQ SCH ×3 (07:01→17:10)
[2022-02-27] MEDS: INSULIN SLIDING SCALE (NOVOLOG) 1 VIAL SQ SCH ×4 (07:01→21:34)
[2022-02-27] MEDS: INSULIN (LEVEMIR) 100 UNITS/ML UNITS SQ SCH ×2 (07:01→21:34)
[2022-02-27] MEDS: ALBUTEROL SO4 2.5/IPRATROPIUM 0.5 INH SOL 3 ML VIAL.NEB. NEB SCH ×3 (07:37→20:32)
[2022-02-27] MEDS: VITAMIN B COMP W-C 1 EA TABLET (NEPHRO-VITE) GT SCH (11:09)
[2022-02-27] MEDS: LACTOBACILLUS ACIDOPHILUS 1 TABLET NGT SCH ×2 (11:09→21:34)
[2022-02-27] MEDS: FINASTERIDE 5 MG TABLET (FP) NR SCH (11:09)
[2022-02-27] MEDS: CARVEDILOL 12.5 MG TABLET (FP) GT SCH ×2 (11:09→21:34)
[2022-02-27] MEDS: AMINO ACIDS/PROTEIN HYDROLYS 30 ML LIQUID.PKT PEG SCH ×2 (11:10→17:10)
[2022-02-27] MEDS: SODIUM HYPOCHLORITE 0.5% 473 ML- BULK BOTTLE TP SCH (11:10)
[2022-02-27] MEDS: ZINC SULFATE 220 MG CAPSULE (FP) PO SCH (11:10)
[2022-02-27] MEDS: FAMOTIDINE 40 MG/5 ML ORAL SUSPENSION GT SCH (11:11)
[2022-02-27] MEDS: SENNOSIDES 8.8 MG/5 ML BULK BOTTLE GT SCH (11:11)
[2022-02-27] MEDS ORDERED: SODIUM CHLORIDE 250 ML IV PRN (16:23)
[2022-02-27] MEDS: CEFTAZIDIME/AVIBACTAM 0.94 GM in DEXTROSE 5%-WATER - 100 ML IVPB SCH (17:49)
[2022-02-27] MEDS: ATORVASTATIN CA 40 MG TABLET (FP) GT SCH (21:34)
[2022-02-28] MEDS: INSULIN (LEVEMIR) 100 UNITS/ML UNITS SQ SCH ×2 (06:27→22:58)
[2022-02-28] MEDS: INSULIN (NOVOLOG) ASPART 100 UNITS/ML 10ML VIAL SQ SCH ×3 (06:27→16:40)
[2022-02-28] MEDS: INSULIN SLIDING SCALE (NOVOLOG) 1 VIAL SQ SCH ×4 (06:27→22:59)
[2022-02-28] MEDS: ALBUTEROL SO4 2.5/IPRATROPIUM 0.5 INH SOL 3 ML VIAL.NEB. NEB SCH ×3 (08:30→20:23)
[2022-02-28 09:09] LABS: BASO % 0.5 % (0-2.0); EOS % 1.4 % (0-4.5); HEMATOCRIT 22.1 % (35.4-49); HEMOGLOBIN 7.4 GM/dL (11.7-16.9); LYMPH % 11.7 % (8-40); MCH 29.3 pg (25.7-33.7); MCHC 33.4 g/dl (32.0-35.9); MEAN CELL VOLUME 87.9 fl (80-96); MEAN PLT VOLUME 8.6 fl (7.5-11.1); NEUT % 80.4 % (42.8-82.8); PLATELET COUNT 356 10^3/uL (134-434); RBC 2.52 M/mm3 (4.00-5.60); RDW 16.4 % (11.9-15.9); WHITE BLOOD COUNT 12.4 K/mm3 (4.0-10.0)
[2022-02-28 09:12] LABS: CALCIUM 10.5 mg/dL (8.5-10.1)
[2022-02-28] MEDS ORDERED: EPOETIN ALFA-EPBX 20,000 UNIT/ML VIAL IVPUSH ONE (09:30)
[2022-02-28] MEDS: FINASTERIDE 5 MG TABLET (FP) NR SCH (12:14)
[2022-02-28] MEDS: CARVEDILOL 12.5 MG TABLET (FP) GT SCH ×2 (12:14→22:57)
[2022-02-28] MEDS: AMINO ACIDS/PROTEIN HYDROLYS 30 ML LIQUID.PKT PEG SCH ×3 (12:14→16:37)
[2022-02-28] MEDS: ZINC SULFATE 220 MG CAPSULE (FP) PO SCH (12:14)
[2022-02-28] MEDS: VITAMIN B COMP W-C 1 EA TABLET (NEPHRO-VITE) GT SCH (12:14)
[2022-02-28] MEDS: LACTOBACILLUS ACIDOPHILUS 1 TABLET NGT SCH ×2 (12:14→22:57)
[2022-02-28] MEDS: SODIUM HYPOCHLORITE 0.5% 473 ML- BULK BOTTLE TP SCH (12:16)
[2022-02-28] MEDS: SENNOSIDES 8.8 MG/5 ML BULK BOTTLE GT SCH (12:16)
[2022-02-28] MEDS: FAMOTIDINE 40 MG/5 ML ORAL SUSPENSION GT SCH (12:18)
[2022-02-28] MEDS: ATORVASTATIN CA 40 MG TABLET (FP) GT SCH (22:57)
[2022-03-01] MEDS: INSULIN (LEVEMIR) 100 UNITS/ML UNITS SQ SCH ×2 (06:19→22:43)
[2022-03-01] MEDS: INSULIN SLIDING SCALE (NOVOLOG) 1 VIAL SQ SCH ×4 (06:21→22:44)
[2022-03-01] MEDS: INSULIN (NOVOLOG) ASPART 100 UNITS/ML 10ML VIAL SQ SCH ×3 (06:22→16:57)
[2022-03-01] MEDS: ALBUTEROL SO4 2.5/IPRATROPIUM 0.5 INH SOL 3 ML VIAL.NEB. NEB SCH ×3 (08:20→20:00)
[2022-03-01] MEDS: SODIUM HYPOCHLORITE 0.5% 473 ML- BULK BOTTLE TP SCH (11:00)
[2022-03-01] MEDS: VITAMIN B COMP W-C 1 EA TABLET (NEPHRO-VITE) GT SCH (11:03)
[2022-03-01] MEDS: CARVEDILOL 12.5 MG TABLET (FP) GT SCH ×2 (11:04→22:39)
[2022-03-01] MEDS: LACTOBACILLUS ACIDOPHILUS 1 TABLET NGT SCH ×2 (11:04→22:39)
[2022-03-01] MEDS: AMINO ACIDS/PROTEIN HYDROLYS 30 ML LIQUID.PKT PEG SCH ×3 (11:04→22:39)
[2022-03-01] MEDS: FAMOTIDINE 40 MG/5 ML ORAL SUSPENSION GT SCH (11:05)
[2022-03-01] MEDS: FINASTERIDE 5 MG TABLET (FP) NR SCH (11:05)
[2022-03-01] MEDS: ZINC SULFATE 220 MG CAPSULE (FP) PO SCH (11:05)
[2022-03-01] MEDS: SENNOSIDES 8.8 MG/5 ML BULK BOTTLE GT SCH (11:06)
[2022-03-01] MEDS: CEFTAZIDIME/AVIBACTAM 0.94 GM in DEXTROSE 5%-WATER - 100 ML IVPB SCH (17:18)
[2022-03-01] MEDS: ATORVASTATIN CA 40 MG TABLET (FP) GT SCH (22:39)
[2022-03-02] MEDS: INSULIN SLIDING SCALE (NOVOLOG) 1 VIAL SQ SCH ×2 (07:06→12:16)
[2022-03-02] MEDS: INSULIN (LEVEMIR) 100 UNITS/ML UNITS SQ SCH (07:06)
[2022-03-02] MEDS: INSULIN (NOVOLOG) ASPART 100 UNITS/ML 10ML VIAL SQ SCH ×2 (07:06→12:16)
[2022-03-02] MEDS: ALBUTEROL SO4 2.5/IPRATROPIUM 0.5 INH SOL 3 ML VIAL.NEB. NEB SCH ×2 (07:39→13:20)
[2022-03-02] MEDS: CARVEDILOL 12.5 MG TABLET (FP) GT SCH (11:01)
[2022-03-02] MEDS: FINASTERIDE 5 MG TABLET (FP) NR SCH (11:02)
[2022-03-02] MEDS: AMINO ACIDS/PROTEIN HYDROLYS 30 ML LIQUID.PKT PEG SCH ×2 (11:02→12:35)
[2022-03-02] MEDS: ZINC SULFATE 220 MG CAPSULE (FP) PO SCH (11:02)
[2022-03-02] MEDS: VITAMIN B COMP W-C 1 EA TABLET (NEPHRO-VITE) GT SCH (11:02)
[2022-03-02] MEDS: LACTOBACILLUS ACIDOPHILUS 1 TABLET NGT SCH (11:02)
[2022-03-02] MEDS: FAMOTIDINE 40 MG/5 ML ORAL SUSPENSION GT SCH (11:03)
[2022-03-02] MEDS: SENNOSIDES 8.8 MG/5 ML BULK BOTTLE GT SCH (11:03)
[2022-03-02 11:46] LABS: BASO % 0.5 % (0-2.0); HEMATOCRIT 22.6 % (35.4-49); HEMOGLOBIN 7.5 GM/dL (11.7-16.9); LYMPH % 14.6 % (8-40); MCH 29.3 pg (25.7-33.7); MCHC 33.3 g/dl (32.0-35.9); MEAN CELL VOLUME 87.9 fl (80-96); MEAN PLT VOLUME 8.6 fl (7.5-11.1); MONO % 5.3 % (3.8-10.2); NEUT % 78.6 % (42.8-82.8); PLATELET COUNT 335 10^3/uL (134-434); RBC 2.57 M/mm3 (4.00-5.60); RDW 16.9 % (11.9-15.9); WHITE BLOOD COUNT 11.6 K/mm3 (4.0-10.0)
[2022-03-02 12:13] LABS: CALCIUM 10.6 mg/dL (8.5-10.1)
[2022-03-02 12:16] LABS: CREATININE 4.8 mg/dL (0.55-1.3)
[2022-03-02] MEDS: SODIUM HYPOCHLORITE 0.5% 473 ML- BULK BOTTLE TP SCH (12:17)
[2022-03-02] MEDS: MORPHINE SULFATE/0.9% NACL/PF 100 MG/100 ML BAG IVPB SCH (14:19)
[2022-03-03] MEDS: MORPHINE SULFATE/0.9% NACL/PF 100 MG/100 ML BAG IVPB SCH (19:09)
[2022-03-04] MEDS: MORPHINE SULFATE/0.9% NACL/PF 100 MG/100 ML BAG IVPB SCH (19:50)
[2022-03-05] MEDS ORDERED: MORPHINE 100 MG/100 ML MG IVPB SCH ×2 (19:30)
[2022-03-06] MEDS: MORPHINE 100 MG/100 ML MG IVPB SCH (23:55)
[2022-03-07] MEDS: MORPHINE 100 MG/100 ML MG IVPB SCH ×2 (09:57→11:39)
[2022-03-08] MEDS: MORPHINE 100 MG/100 ML MG IVPB SCH ×2 (00:27→21:30)
[2022-03-09] MEDS: MORPHINE SULFATE/0.9% NACL/PF 100 MG/100 ML BAG IVPB SCH (22:46)
[2022-03-10] MEDS: MORPHINE SULFATE/0.9% NACL/PF 100 MG/100 ML BAG IVPB SCH (23:54)
[2022-03-11 15:04] VITALS: RESP 18
[2022-03-11 19:05] VITALS: BP 127/65
[2022-03-11] MEDS: MORPHINE SULFATE/0.9% NACL/PF 100 MG/100 ML BAG IVPB SCH (23:35)
[2022-03-12 18:58] VITALS: TEMP 98.1
[2022-03-13] MEDS: MORPHINE SULFATE/0.9% NACL/PF 100 MG/100 ML BAG IVPB SCH (00:46)
[2022-03-13 11:00] VITALS: PULSE 97
== END 2022-03-13 16:27 | disposition hospice, inpatient (51) | DRG 682 ==
LOC: JER 23:04 → JERBED 02-13 01:22 → OBSVTOIN 02-13 03:59 → J5S 02-14 16:28
PROVIDERS: ADMIT Internal Medicine; ATTEND Internal Medicine
PROC: 5A1955Z Respiratory Ventilation, Greater than 96 Consecutive Hours (ICD-10-PCS; principal; 2022-02-13)
PROC: 30233N1 Transfusion of Nonautologous Red Blood Cells into Peripheral Vein, Percutaneous Approach (ICD-10-PCS; 2022-02-13)
PROC: 5A1D70Z Performance of Urinary Filtration, Intermittent, Less than 6 Hours Per Day (ICD-10-PCS; 2022-02-25)
DX: I12.0 Hypertensive chronic kidney disease with stage 5 chronic kidney disease or end stage renal disease (principal); L89.154 Pressure ulcer of sacral region, stage 4; N18.6 End stage renal disease; G93.1 Anoxic brain damage, not elsewhere classified; E46 Unspecified protein-calorie malnutrition; J96.11 Chronic respiratory failure with hypoxia; L03.116 Cellulitis of left lower limb; Z99.11 Dependence on respirator [ventilator] status; D63.1 Anemia in chronic kidney disease; Z93.0 Tracheostomy status; E11.65 Type 2 diabetes mellitus with hyperglycemia; J44.9 Chronic obstructive pulmonary disease, unspecified; D72.829 Elevated white blood cell count, unspecified; E83.52 Hypercalcemia; E88.09 Other disorders of plasma-protein metabolism, not elsewhere classified; Z99.2 Dependence on renal dialysis
CPT/HCPCS: 36415; 36430; 71045-TC-FY; 73700-TC-RT; 76882-TC-RT-FY; 80048; 80053; 80170; 81003; 82272; 82728; 82962; 83010; 83540; 83550; 83615; 83735; 83970; 84100; 85025; 85027; 85045; 85610; 86078; 86803; 86850; 86900; 86901; 86922; 87040; 87070; 87086; 87184; 87186; 87205; 87324; 87340; 87449; 90677; 93005; 93010; 94002; 94640; 99285-25; C9803-CS; G0378; G0480; P9058; Q5106; U0003; U0005